=== PATIENT | female | born 1980 | race Caucasian/White ===

== ENCOUNTER → 2019-08-08 08:39 | Outpatient (CLI) | payer OTHER, SELFPAY ==
--- NOTE | 2019-08-08 | DI.US.S_ITS ---
PROCEDURE: US OB >= 14 WEEKS FETUS INDICATIONS: ENCOUNTER IF SUPERVISION OF FIRST OUTSIDE/PRIOR DATING DATA: Last menstrual period (LMP): 03/19/19. LMP-based estimated date of delivery (WISAM): 12/20/19. First dating scan (date and location): 08/08/19. Estimated date of delivery (WISAM) from first dating scan: 12/20/19. TECHNIQUE: Real-time scanning was performed of the fetus, with image documentation and biometric measurements. Endovaginal scanning: No COMPARISON: None. FINDINGS: General: A single living intrauterine gestation is present. Presentation: Vertex. Placenta: Placental position is anterior, without previa. Amniotic fluid index: 13.1 cm, normal range is 5-24 cm. heart rate: 139 beats per minute. Maternal cervical canal: 4.6 cm long. Normal lower limit is 2.5 cm. biometrics: Biparietal diameter: 20 weeks 4 days Head circumference: 21 weeks 1 day Abdominal circumference: 21 weeks 2 days Femur length: 20 weeks 3 days Estimated gestational age from initial scan: not applicable. Composite gestational age from present scan: 20 weeks 6 days Estimated weight and percentile: 3 994 g; 54 percentile Measurement variability for biometric dating: +/- 7 days from 14 weeks to 15 weeks 6 days gestation, +/- 10 days from 16 weeks to 21 weeks 6 days gestation, +/- 2 weeks from 22 weeks to 27 weeks 6 days gestation, +/- 3 weeks for 28 weeks gestation or later. weight reference: 4500 g or EFW >90/95% is considered macrosomia or large for gestational age. EFW <10% is small for gestational age. EFW 5% or less is considered intra-uterine growth restriction. Anatomic survey: Neuro: Ventricles are non-dilated at less than 10 mm. Cisterna magna is normal at 3-11 mm. Cerebellum is normal in size and morphology. Nuchal skin fold: Normal at less than 6 mm between 14-21 weeks gestational age. Face: Nose and lips, facial profile are normal. Spine: No evidence for spina bifida. Heart: 4-chambered heart is present, with normal ventricular outflow tracts. Diaphragm: Diaphragm is intact. Stomach: Left-sided stomach is present. Kidneys: No hydronephrosis. Normal is less than 5 mm in 2nd trimester, less than 7 mm in 3rd trimester. Cord: 3-vessel cord has orthotopic insertion. Bladder: Normal in size. Extremities: All 4 extremities identified. IMPRESSION: 1. Single living IUP with mean composite gestational age of 20 weeks 6 days corresponding to ultrasound WISAM of 12/20/19. 2. Normal anatomic survey. Dictated by: José Miguel Chong [facility] Interpreted: Brian Parrish MD on 08/08/2019 at 12:59 Approved by: Brian Parrish M.D. on 08/08/2019 at 16:48
== END ==
PROVIDERS: PCP Physician Assistant Medical; Visit Provider Nurse Practitioner Obstetrics & Gynecology
DX: Z34.02 Encounter for supervision of normal first pregnancy, second trimester (principal); Z3A.20 20 weeks gestation of pregnancy
CPT/HCPCS: 76811

== ENCOUNTER → 2019-09-18 06:43 | Outpatient (CLI) | payer OTHER, SELFPAY ==
[2019-09-18 08:46] LABS: Hematocrit 34.5 % (36-46); Hemoglobin 11.5 g/dL (12.0-16.0); Mean Corpuscular HGB Conc 33.5 % (30-36); Mean Corpuscular Hemoglobin 30.6 PG (26-34); Mean Corpuscular Volume 91.3 fL (80-100); Platelet Count 172 X10^3/uL (150-400); Red Blood Cell Count 3.77 X10^6/uL (4.0-5.2); Red Cell Distribution Width 12.7 % (11.6-14.8); White Blood Cell Count 9.8 X10^3/uL (4.5-11.0)
[2019-09-18 08:58] LABS: Glucose 1 Hour 177 mg/dL (70-170)
[2019-09-18 09:09] LABS: Glucose Fasting 83 mg/dL (70-100)
[2019-09-18 09:37] LABS: Glucose Tol Interpretation INTERPRETATION
[2019-09-18 10:01] LABS: Glucose 2 Hour 161 mg/dL (70-140)
== END ==
PROVIDERS: PCP Physician Assistant Medical; Visit Provider Nurse Practitioner Obstetrics & Gynecology
DX: Z34.02 Encounter for supervision of normal first pregnancy, second trimester (principal); Z13.1 Encounter for screening for diabetes mellitus
CPT/HCPCS: 36415; 82951; 82952; 85027

== ENCOUNTER → 2019-09-25 09:48 | Outpatient (CLI) | payer OTHER, SELFPAY ==
--- NOTE | 2019-09-25 11:02 | DIET.PN ---
INITIAL GESTATIONAL DIABETES ASSESSMENT ASSESS:? Mrs. Eid is a 39 yof newly diagnosed with Gestational Diabetes. This is her first . She has been monitoring her BG 4 x/day for the last 5 days. She reports a 16 lb weight loss in the first trimester, but is slowly starting to gain some back. She admits she does not typically eat 3 meals per day. She generally does not eat in the evening, but has been trying to be more consistent with meals since . Reports taking her multivitamin every 3 days. She recently started walking in the evening with her . ? WISAM:?December 20, 2019 ? WKS GESTATION:?? 28 weeks ?LABS: Gluc: 83 1 hr: 177 2 hr: 161 FB-93 1 hrPP: 78-122 ? MEDS: n/a ? DIET:? B: eggs, avocado, toast L: salad D: turkey, roasted veg ? HT:? 66 ? PRE-PREG WT:? 181 # ? PRE-PREG BMI:??? 29.2 ? CURRENT WT : 183 # ? TOTAL WT GAIN:? 2 # EXERCISE: walking 15 min after dinner NUTRITION DX 1. Altered nutrition related lab values r/t gestational diabetes as evidenced by recent labs (OGGT). INTERVENTION 1. Discussed pathophysiology of gestational diabetes and impact of hormone and nutrition/diet on blood sugar control.? Discussed fed versus non-fed state.? 2. Recommended checking fasting and 1hr post prandial (3x/day).? Discussed goals for glycemic control (<95 FBG, <140 1-hr PP).? 3. Discussed the effect of carbohydrates/protein/fat on blood sugar control.? Stressed importance of consistent carbohydrate intake at each meal and provided instructions for recommended servings/portions of carbohydrates/protein per meal.? Provided pt with educational material. 4. Introduced carbohydrate counting and measuring carbohydrate content via servings sizes and reading nutrition labels.? Provided handouts.? Pt will need further review 5. Discussed importance of meal timing and not going >3 hours between meals.? Provided sample meal schedule for pt.? Pt agreeable.?? 6. Discussed importance a pre-malissa vitamin and including food sources of calcium, vitamin D, iron and folic acid for baby and mother?s nutrition support. 7. Discussed caffeine intake. Recommend no more than 200 mg/day (1 cup coffee). 8. Discussed rule of 15 for hypoglycemia. 9. Recommend patient purchase Urine Ketone strips and instructed on use and when to contact provider. 10. Recommended patient continue exercise as appropriate per PCP approval. 11. Patient may need medication management, will follow-up with plan of care at next visit after reviewing glucose results.? MONITOR/EVAL: Follow up scheduled X 2 week. Good compliance expected. Review: carb sources, carb counting, portion size, meal timing, BG log, weight.
== END ==
PROVIDERS: PCP Physician Assistant Medical; Visit Provider Nurse Practitioner Obstetrics & Gynecology
DX: O24.419 Gestational diabetes mellitus in pregnancy, unspecified control (principal); Z3A.28 28 weeks gestation of pregnancy; Z71.3 Dietary counseling and surveillance
CPT/HCPCS: 97802

== ENCOUNTER → 2019-10-10 13:54 | Outpatient (CLI) | payer OTHER, SELFPAY ==
--- NOTE | 2019-10-10 15:25 | DIET.PN ---
Gestational Diabetes Follow Up ? ASSESS:? Mrs. Eid was seen for gestational diabetes nutrition F/U. She continues to monitor her fasting blood glucose and 1 hr PP every meal. She has maintained normal glucose values most of the time with FBG between 66-95 (>95 x 2) and 1 hr PP between 65-122. She is continues to maintain a consistent diet eating 3 x/day with snacks in between. She is now taking her multi vitamin every evening with no complications. It is notable that her fasting blood glucose has gone down since returning to work from the holiday break. She feels this is likely due to a more consistent schedule and waking time. She was excited to report she has been cooking with a variety of produce and is learning to replace many starchy side items with mashed veggies. ? LABS: FB-95 (96, 122) 1 hr PP:??65-122 ? Weight: 184 # (1 # weight gain) ? DIET: BF: eggs, avocado, toast L: chicken, salad D: chicken, 1 cup homemade mac n cheese, variety of vegetables Sn: toast or apple w/ PB, milk ? EXERCISE:?? ? NUTRITION Dx? 1. Altered nutrition related labs r/t gestational diabetes aeb recent labs (OGGT). ? INTERVENTION? 1. Reviewed blood sugar log and implications/reasons for elevated/decreased blood sugar.? Pt with good understanding.? 2. Reviewed carbohydrate counting and importance of consistent carbohydrate intake.? 3. Reviewed meal intake and importance of balanced meals. 4.Discussed evening snacks ideas. Recommended avoiding milk and fruit after dinner. ? MONITOR/EVALUATE: Pt receptive to information provided.? Will schedule follow up in 6 weeks. Patient will call sooner if blood glucose is not in range.
== END ==
PROVIDERS: PCP Physician Assistant Medical; Visit Provider Nurse Practitioner Obstetrics & Gynecology
DX: O24.419 Gestational diabetes mellitus in pregnancy, unspecified control (principal); Z71.3 Dietary counseling and surveillance
CPT/HCPCS: 97803

== ENCOUNTER → 2019-11-10 10:57 | Outpatient (CLI) | payer OTHER, SELFPAY ==
--- NOTE | 2019-11-10 12:26 | DIET.PN ---
Gestational Diabetes Follow Up ? ASSESS:? Mrs. Eid was seen for GDM f/u. She called concerned with low blood glucose readings throughout the day reporting feelings of fatigue. She admits she has not been eating as many carbs as she should be as it is sometimes challenging to keep in moderation, so she does not eat them. She also reports changes in her work schedule with a new lunch time of 10:20. She is often not hungry at that time and will not get a chance to eat later in the afternoon so she waits until she is home from work. ? LABS: FB-89 1 hr PP Brk:?76-90 1 hr PP tara: 76-106 1 hr PP din: 88-141? Weight: 189 (up 5 # in 1 mo) ? NUTRITION Dx? 1. Altered nutrition related labs r/t gestational diabetes aeb recent labs (OGGT). ? INTERVENTION? 1. Reviewed blood sugar log and implications/reasons for elevated/decreased blood sugar.? Pt with good understanding.? 2. Reviewed carbohydrate counting and importance of consistent carbohydrate intake.? 3. Discussed lunch and snack ideas to take to school to ensure she is getting enough carb/pro when schedule does not allow for a later meal time. 4. Recommended adding ? banana to morning protein shake and milk with each meal for improved glucose. 5. Discussed adding beans/lentils, cold peas or corn to lunch salads for added CHO w/ fiber. 6. Recommended continuing to monitor FBG several times /day and check 1 hr PP breakfast with updated dietary changes and as these have been her lowest ranges and when she feels the most fatigue. ? MONITOR/EVALUATE: Pt receptive to information provided.? Will schedule follow up if blood glucose is not in range. :
== END ==
PROVIDERS: PCP Physician Assistant Medical; Referring Provider Nurse Practitioner Obstetrics & Gynecology; Visit Provider Nurse Practitioner Obstetrics & Gynecology
DX: E11.649 Type 2 diabetes mellitus with hypoglycemia without coma (principal); Z71.3 Dietary counseling and surveillance
CPT/HCPCS: G0108

== ENCOUNTER 2019-11-18 16:09 | Outpatient (CLI) | payer OTHER, SELFPAY ==
--- NOTE | 2019-11-18 16:44 | P.TNLD_ITS ---
Visit Information Visit Information Date of evaluation: 11/18/19 Primary OB Provider: Samira Phillips On-call OB Provider: Samira Phillips Comments/Additional reasons for admission: 39 @ [id number] by LMP and early US. Presenting for evaluation of BP. Wasn't feeling well over the weekend with an episode Sunday of temporary loss of a patch of her field of vision, then a syncopal episode in the shower on Sunday. Denies impact to head or abdomen. [facility] her [facility] and bought a home BP cuff. Has had 2 elevated readings, one at [facility] and one at home w/ diastolic 92. Denies CAMARGO, recurrence of vision changes, RUQ pain or edema. +FM. No cramping or ctx. No LOF. Increased anxiety d/t close friend w/ similar WISAM who has recently developed preeclampsia w/ severe features and was admitted to [facility] . [facility] Medical History (Updated 11/18/19 @ 16:55 by Samira Phillips CNM) Benign focal childhood epilepsy (Acute) Skin cancer (melanoma) (Acute) Family History (Updated 11/18/19 @ 16:57 by Samira Phillips CNM) Father Thyroid disorder Social History (Updated 11/18/19 @ 16:57 by Samira Phillips CNM) marital status: household members: spouse lives independently: Yes housing: house education level: college occupational status: employed Review of Systems Review of Systems ROS: Yes All systems reviewed with the patient and are negative except as otherwise documented Exam Vital Signs (past 8 hours): BP 116/69, HR76, T97.2F Temporal Presentation: vertex Evaluation Evaluation Baseline heart rate: 130 Variability: Moderate (11-25) monitor accelerations: Present monitor decelerations: Absent Contraction Frequency (minutes): 0 Category of Tracing: I Comments: CE Deferred Diagnosis, Plan/Disposition Plan/Disposition Plan: Recommend increased hydration and consistent nutrition intake as patient has known issues w/ low BGs. Reassurance given on normal BP and reactive NST. Standard precautions igven. RTC as previously scheduled. OB Disposition: home
== END 2019-11-18 16:45 | disposition home or self-care (01) ==
LOC: OB 11-19 10:38
PROVIDERS: PCP Physician Assistant Medical; Referring Provider Nurse Practitioner Obstetrics & Gynecology; Visit Provider Nurse Practitioner Obstetrics & Gynecology
DX: O26.893 Other specified pregnancy related conditions, third trimester (principal); H53.8 Other visual disturbances; R55 Syncope and collapse; R03.0 Elevated blood-pressure reading, without diagnosis of hypertension; Z3A.35 35 weeks gestation of pregnancy
CPT/HCPCS: 59025; G0378; G0379

== ENCOUNTER → 2019-11-22 14:06 | Outpatient (ROUT) | payer OTHER, SELFPAY | PROVIDERS: Visit Provider Nurse Practitioner Obstetrics & Gynecology | DX: Z11.0 Encounter for screening for intestinal infectious diseases (principal); Z11.2 Encounter for screening for other bacterial diseases | CPT/HCPCS: 87081 ==

== ENCOUNTER 2019-12-05 11:38 | Inpatient (IN) | payer OTHER, SELFPAY ==
--- NOTE | 2019-12-05 12:25 | PM.OBHP.1 ---
OB HPI Date/Time Date of admission: 12/05/19 Date Patient Seen: 12/05/19 Time Patient Seen: 12:00 History of Present Condition Chief complaint: Observation of labor : 2 Para: 0 Estimated Date of Delivery: 12/20/19 Estimated Gestational Age (weeks): 37.6 Narrative: Janny Eid is a 39 year old female @ [id number] by LMP and 8wk US presents for evaluation of PROM. Has noticed leaking clear, pink fluid since midnight last night. +FM. Occasional mild ctx, nothing consistent or strong. Declined to come in until 12 hours of ROM, now agreeable to active management of PROM. High anxiety with needles and exams, declines cervical exam. Planning epidural. present and supportive. History of Present care: good care, initiated at week # (8), number of visits (11) and pounds weight gain (21) Dating criteria: LMP confirmed by 1st trimester US Obstetrical complications: gestational diabetes (GDMA1) Medical complications: psychiatric (depression/anxiety) Preadmission Labs Blood type: A (+) positive -: Antibody screen: negative, GBS status: negative, HBsAG: negative, HIV: negative and RPR/VDLR: negative -: Chlamydia screen: not detected and Gonorrhea screen: not detected -: Rubella: immune and Varicella: unknown HCT: 34.5 PAP: Normal Cell-free DNA: negative/male 1 hr GTT: 177 3 hr GTT: 2 hr (161) Fasting blood glucose: 83 Prior (ies) History: 2016-TAB @ 5wks Evaluation Evaluation Baseline heart rate: 130 Variability: Moderate (11-25) monitor accelerations: Present monitor decelerations: Absent Contraction Frequency (minutes): 0 Uterine Contraction Intensity: Mild Category of Tracing: I PFSH Medical History Benign focal childhood epilepsy (Acute) Gestational diabetes (Inactive) Skin cancer (melanoma) (Acute) Family History Father Thyroid disorder Social History marital status: household members: spouse lives independently: Yes housing: house education level: college occupational status: employed Meds Home Medications and Allergies Home Medications Medication Instructions Recorded Confirmed Type sertraline mg 12/05/19 History Allergies Allergy/AdvReac Type Severity Reaction Status Date / Time tegratol Allergy Unknown Uncoded 12/05/19 12:44 Review of Systems Review of Systems ROS: Yes All systems reviewed with the patient and are negative except as otherwise documented Exam Vital Signs (past 8 hours): HR 109/72, HR76, T36.2F Temporal Chest Chest: normal inspection of the chest Resp Effort & Inspection: normal respiratory effort Auscultation: clear to auscultation bilaterally Cardio Rate: regular rate Rhythm: regular rhythm Heart Sounds: S1 normal and S2 normal Uterus Location (Fundal Height): 37 Presentation: vertex Estimated Weight (lbs): 6 Amniotic Fluid: clear Assessment and Plan Assessment and Plan Assessment and Plan narrative: A: AMA Primip Term PROM @ 37.6wks ROM x12 hours without sx of infectionNot in labor No indication for GBS prophylaxis Depression-stable on sertraline Cat I FHR P: Admit routine orders w/ random glucose added. Pitocin augmentation, start @ 1-2mu/min and may in crease 1-2mu/min Q30min, RN notified. Labor support PRN. Epidural when requested. Will check CE after 2 hours of strong ctx or sooner, PRN. reassess in 4-6 hours. OB Back-up/ notified of pt admit status and POC. Time Spent with Patient Total time spent with greater than 50% in coordination of care (as documented) at patient's floor/unit and/or counseling patient:: 25 - 35 minutes
[2019-12-05] MEDS: LACTATED RINGERS 1,000 ML 125 ML IV ×2 (13:45→20:20)
[2019-12-05 14:06] LABS: Add Manual Diff / Slide Review NO; Basophils Absolute Auto 0 /uL (0-100); Basophils Percent Auto 0.3 % (0-2); Eosinophils Absolute Auto 100 /uL (0-450); Eosinophils Percent Auto 0.5 % (2-4); Hematocrit 37.9 % (36-46); Hemoglobin 12.4 g/dL (12.0-16.0); Lymphocytes Absolute Auto 2700 /uL (1100-4500); Lymphocytes Percent Auto 20.6 % (25-40); Mean Corpuscular HGB Conc 32.8 % (30-36); Mean Corpuscular Hemoglobin 29.2 PG (26-34); Mean Corpuscular Volume 89.1 fL (80-100); Monocytes Absolute Auto 500 /uL (0-900); Monocytes Percent Auto 3.9 % (3-14); Neutrophils Absolute Auto 9900 /uL (1500-7000); Neutrophils Percent Auto 74.7 % (50-75); Platelet Count 154 X10^3/uL (150-400); Red Blood Cell Count 4.26 X10^6/uL (4.0-5.2); Red Cell Distribution Width 13.5 % (11.6-14.8); White Blood Cell Count 13.2 X10^3/uL (4.5-11.0)
[2019-12-05] MEDS: OXYTOCIN PREMIX 30 UNIT/500 ML PLAST..BAG IV (14:15)
[2019-12-05 14:20] LABS: Glucose 72 mg/dL (70-100)
[2019-12-05 14:31] VITALS: BP 109/70
--- NOTE | 2019-12-05 16:23 | PM.OBPNLAB ---
Date/Time Date Patient Seen: 12/05/19 Time Patient Seen: 16:20 Pain Control Pain control: tolerating well Comments: Augmentation delayed d/t difficult IV placement. PIV in left upper arm by AMBERLY RN under US guidance after 1 failed attempt. Pitocin was started shortly after 2pm. Pt has been walking and is now trying to sleep, remains completely comfortable. Pelvic Exam Comments: deferred Contractions Contractions on admission: irregular Monitor mode: External Pitocin rate (mU/min): 3 Contraction frequency (min): 5 Contraction duration (min): 50 Contraction pattern: Irregular Contraction intensity: Mild Status status: Category l Heart Rate Baseline: 125 Monitor Accelerations: Present Monitor Decelerations: Absent Monitor Variability: Moderate Assessment and Plan Assessment: other Plan: continuous present management Comments: Encouraged RN to increase pitocin by 1-2 mu/min Q3o minutes. Reassess in 4-6 hours or sooner, PRN.
--- NOTE | 2019-12-05 21:33 | PM.OBPNLAB ---
Date/Time Date Patient Seen: 12/05/19 Time Patient Seen: 21:20 Pain Control Pain control: epidural Comments: Pt began to feel strong contractions around 6pm and requested epidural around 8pm. Patient received moderate pain relief w/ epidural, but continues to c/o RLQ contraction pain and is working with anesthesia to improve this. VS: BP 123/71, HR 74bpm, T 35.6C Temporal Pelvic Exam Dilation (cm): 3 Effacement (%): 90 station: -3 Amniotic membrane status: Leaking Contractions Date/Time contractions began: 1800 Contractions on admission: regular Monitor mode: External Pitocin rate (mU/min): 9 Contraction frequency (min): 3 Contraction duration (min): 1 Contraction pattern: Irregular Contraction intensity: Mild Status status: Category ll Heart Rate Baseline: 125 Monitor Accelerations: Present Monitor Decelerations: Variable Monitor Variability: Moderate Assessment and Plan Assessment: active labor Plan: continuous present management Comments: Continue to work w/ anesthesia for adequate pain relief. Encourage rest and position changes. Reassess in 4 hours or sooner, PRN.
[2019-12-05] MEDS: SERTRALINE 50 MG TABLET 100 MG PO (21:34)
[2019-12-05] MEDS: ONDANSETRON 4 MG/2 ML INJ IV (21:51)
--- NOTE | 2019-12-06 01:53 | PM.OBPRVD ---
 Events: Gestational Diabetes (GDMA1), Labor Augmentation and Premature Rupture of Membrane Labor & Delivery Delivery date: 12/06/19 Intrapartal events: None Delivery augmentation: pitocin Delivery monitor: external FHT and external uterine Route of delivery: L&D Laceration Description: Perineal - 1st Degree, Labial (Right periclitoral/labia minora) and Superficial Delivery repair: vicryl (4.0) Estimated blood loss (mL): 50 Anesthesia type: Epidural Narrative: Patient was examined at 0100 for recurrent variables in FHR w/ gonzalo to 80's and good return to baselline between contractions. CE C/C/+1. Effective pushing w/ coaching and encouragement led to rapid descent of vertex and NSVB of a viable baby boy in MARTA position. There was no nuchal cord and the shoulders delivered easily. was placed on maternal abdomen for drying and stimulation. Apgars 8/9. remaining 30 units of pitocin in 500mL LR was increased to 350mL/hr for AMTSL. After cessation of pulsation, the cord was double clamped by CNM and cut by FOB. Gentle cord traction led to spontaneous, Schultze deliveyr of an apparently intact placenta, membranes and 3VC. Fundus immediately firm and bleeding minimal. A right periclitoral/labia minora split was repaired w/ 4.0 vicryl for good approximation and a single figure of eight w/ 4.0 vicryl was used to repair a 1st degree perineal laceration. All under adequate epidural anesthesia. QBL 50mL. Baby 1: Infant gender: Male Presentation: vertex position: Right Occiput Anterior (MARTA) Placenta delivery description: Spontaneous cord vessel description: 3 Vessels score (1 min): 8 score (5 min): 9 Plan for aftercare: P: Routine PP orders w/ anticipated discharge in 36 hours.
[2019-12-06] MEDS: KETOROLAC 30 MG/ML VIAL IV (03:45)
[2019-12-06] MEDS: DOCUSATE 100 MG CAPSULE PO ×2 (09:48→21:15)
[2019-12-06] MEDS: PRENATAL VIT,CALC/IRON/FOLIC 1 TABLET 1 TAB PO (09:48)
[2019-12-06] MEDS: DERMOPLAST SPRAY 20% 60 ML 1 SPRAY TOP (13:28)
--- NOTE | 2019-12-06 15:16 | PM.OBPN.1 ---
Subjective - OB Subjective Patient comments: no complaints, pain well controlled and tolerating diet baby status: doing well and nursing well feeding status: exclusively breast feeding Narrative: Patient feeling well since giving . Voiding and ambulating independently. well w/ RN asistance. Minimal lochia, no clots. Date Patient Seen: 12/06/19 Time Patient Seen: 15:00 Exam Vital Signs (past 8 hours): BP 108/72, LA12hsi, RR17, T97.8F Temporal, SpO2 97% Const General: cooperative, healthy appearing and comfortable Nutritional Appearance: overweight Orientation: alert, awake and oriented x3 Chest Breast inspection: normal inspection of the breasts Other: Fundus firm @U, lochia scant Psych Affect: normal affect Objective Labs Result Diagrams: 12/05/19 13:45 12/05/19 13:45 Assessment & Plan Plan day: 1 plan OB: routine care Comments: Maintain routine PP orders w/ focus on support overnight. Anticipate d/c to home tomorrow. Time Spent With Patient Time: Total time spent is greater than 50% in coordination of care (as documented) at patient's floor/unit and/or counseling patient: Time with patient: less than 15 minutes
[2019-12-06] MEDS: LANOLIN OINT 7 GM 1 APPLIC TOP (16:58)
[2019-12-06] MEDS: SERTRALINE 50 MG TABLET 100 MG PO (21:15)
[2019-12-07] MEDS: PRENATAL VIT,CALC/IRON/FOLIC 1 TABLET 1 TAB PO (08:50)
[2019-12-07] MEDS: DOCUSATE 100 MG CAPSULE PO (08:50)
--- NOTE | 2019-12-07 11:35 | P.DS_ITS ---
Discharge Providers Provider Date of admission: 12/05/19 11:38 Discharge Date: 12/07/19 Primary care physician: Balwinder Plummer Consults: 12/07/19 01:51 Consult to Shipper/Receiver Routine Comment: Discharge provider: Samira Phillips CNM Summary Hospital Course Date Patient Seen: 12/07/19 Time Patient Seen: 11:15 Procedures: 39YO @ 1 day PP. Viding and ambulating independently. confidently with occasional use of a nipple shield. Tolerating ge neral diet. Pain well controlled w/ PO medication. Minimal vaginal bleeding. Spouse remains present and supportive, both eager for discharge to home today. Peripartum Data Infant Delivery Method: Natural Vaginal Laceration description: Perineal - 1st Degree complications: none 1: Gender: Male Disposition of : home Status at Discharge Cognitive/behavioral status at discharge: oriented and at baseline, oriented Functional status at discharge: independent ambulation Overall status at discharge: patient is progressing back to baseline Time Spent with Patient Time attestation: Total time spent providing and/or coordinating discharge services: Time spent: Less than 30 minutes Objective Labs Result Diagrams: 12/05/19 13:45 12/05/19 13:45 Exam Vital Signs (past 8 hours): BP 123/73, HR83, RR16, T97.5F Temporal, SpO2 98% Chest Chest: normal inspection of the chest Breast inspection: normal inspection of the breasts Other: nipples red and tender, intact Cardio Rate: regular rate Rhythm: regular rhythm Heart Sounds: S1 normal and S2 normal Other: Fundus firm @ u-1, lochia scant Psych Appearance: grossly normal and well kempt Speech and Movement: speech and movement normal Mood: congruent mood Discharge Plan Discharge Plan Patient Disposition: Home Discharge orders & Medications Prescriptions: New acetaminophen 325 mg Tablet 650 mg PO Q6HR PRN (Reason: Pain, Mild (1-3)) 14 Days Qty: 60 RF: 2 docusate sodium [DOK] 100 mg Capsule 100 mg PO BID 14 Days Qty: 28 RF: 0 ibuprofen 600 mg Tablet 600 mg PO Q6HR PRN (Reason: Pain, Mild (1-3)) 14 Days Qty: 60 RF: 2 Nsi-G-Yzownh Cream 1 applic topical PRN PRN (Reason: Tenderness) 365 Days Qty: 60 RF: 1 Continued sertraline 100 mg tablet 100 mg PO DAILY RF: 0 Follow up/Referrals: Balwinder Plummer [Primary Care Provider] - Samira Phillips CNM [Advanced Database Security Expert] - (Follow up in 2 weeks (12/19/19 @ 1pm) and in 6 weeks ( patient to schedule)) Diet/Activity/Treatments Diet: Diet as Tolerated and Regular Activity: 6 weeks of pelvic rest. Slowly increase activity as tolerated. Skin/Wound/Dressing Care Report to your healthcare provider any signs of infection, such as:: chills, fever, increased pain and unusual redness Visit Report/Discharge Packet Instructions: DI for Depression Discharge Data Primary Care Provider: Balwinder Plummer
[2019-12-07 12:05] VITALS: BP 123/47; PULSE 82; RESP 16; TEMP 36.4
== END 2019-12-07 13:08 | disposition home or self-care (01) | DRG 807 ==
PROVIDERS: Admitting Provider Nurse Practitioner Obstetrics & Gynecology; PCP Physician Assistant Medical; Referring Provider Nurse Practitioner Obstetrics & Gynecology; Visit Provider Nurse Practitioner Obstetrics & Gynecology
DX: O42.02 Full-term premature rupture of membranes, onset of labor within 24 hours of rupture (principal); O24.429 Gestational diabetes mellitus in childbirth, unspecified control; Z3A.37 37 weeks gestation of pregnancy; Z37.0 Single live birth; O70.0 First degree perineal laceration during delivery
CPT/HCPCS: 01967; 59050; 82947; 85025; 86850; 86900; 86901; G0379; J1885; J2405; J2590

== ENCOUNTER 2020-01-02 12:29 | Inpatient (IN) | payer OTHER, SELFPAY ==
[2020-01-02] VITALS (13 sets, daily range): BP systolic 98–114; BP diastolic 54–75; PULSE 100–120; RESP 11–20; TEMP 36.9–38.4; O2SAT 95–99; BMI 28.2
--- NOTE | 2020-01-02 | PATH_ITS ---
[facility] Accession Number: [id number] . 01 Material submitted: . breast - RIGHT BREAST SKIN BIOPSY . 01 Clinical history: . MASTITIS/ENGORGED BREASTS CLOGGED UP THROWING UP . 01 Diagnosis: Right Breast Skin, Biopsy: Dermal edema and mild interstitial inflammation with neutrophils. . Note: While non specific, the findings could represent, in the proper clinical setting, an evolutionary stage of cellulitis. PAS stain is negative for fungal organisms. Gram stain shows only focal scanty Gram positive cocci in the stratum corneum. No malignancy is identified in the sections examined, nor with panCK immunostain performed. No mammary glandular tissue is visualized histologically. Clinicopathologic correlation is advised for definitive diagnosis. OIT 01/06/2020 1208 Local . 01 Electronically signed: . Carly Rollins MD, Dermatopathologist NPI- [id number] . 01 Gross description: . Received in formalin, labeled right breast skin biopsy, is an unoriented 0.5 x 0.3 x 0.2 cm piece of cowan-white smooth shiny skin. The resection margin is inked blue. Bisected and entirely submitted in cassette A1. ([id number]) /MRV 01/05/2020 0026 Local . 01 Pathologist provided ICD-10: L98.9 . 01 CPT . 521763, 122870, 552578, [id number] Performed at: [address] [facility] [address], [place], [place] [id number] MD Bob Sosa MD Phone: [phone]
--- NOTE | 2020-01-02 12:54 | ED_ITS ---
HPI - Skin/Abscess/Foreign Bdy General Chief complaint: Skin/Abscess/Foreign Body Stated complaint: mastitis/engorged breasts clogged up, throwing up Time Seen by Provider: 01/02/20 12:36 Source: patient Mode of arrival: Ambulatory Limitations: no limitations History of Present Illness HPI narrative: 39-year-old 4 weeks from spontaneous vaginal delivery at 37 weeks was breast-feeding here for evaluation of right-sided mastitis, breast engorgement, breast pain, fevers. Has been on a course of which she describes as doxycycline. She completed the course of this. She is now approximately 1 week into a course of Augmentin. She reports she continues to have pain and redness and engorgement of her right breast. She is only able to express a few drops of milk. Also describes fevers. Came into the emergency department because the pain. Related Data Home Medications Medication Instructions Recorded Confirmed sertraline 100 mg PO DAILY 12/05/19 12/05/19 Previous Rx's Medication Instructions Recorded acetaminophen 650 mg PO Q6HR PRN 14 Days #60 tab 12/07/19 docusate sodium [DOK] 100 mg PO BID 14 Days #28 cap 12/07/19 ibuprofen 600 mg PO Q6HR PRN 14 Days #60 tab 12/07/19 lanolin [[id number]] 1 applic TOPICAL PRN PRN 365 Days 12/07/19 #60 gram Allergies Allergy/AdvReac Type Severity Reaction Status Date / Time carbamazepine [From Tegretol] Allergy Verified 01/02/20 15:05 Review of Systems Constitutional Constitutional: Reports fever(s) Cardiovascular Cardiovascular: Denies chest pain and Denies dyspnea Respiratory Respiratory: Denies dyspnea Gastrointestinal Gastrointestinal: Denies abdominal pain Genitourinary Genitourinary: Denies dysuria Integumentary/Breasts Comments: Redness engorgement of right breast Hematologic/Lymphatic Hematologic/Lymphatic: Denies easy bleeding and Denies easy bruising Patient History Medical History Benign focal childhood epilepsy (Acute) Gestational diabetes (Inactive) Skin cancer (melanoma) (Acute) Social History marital status: household members: spouse lives independently: Yes housing: house education level: college occupational status: employed Smoking Status: Never smoker Smoking Status: Never smoker Exam Initial Vital Signs Initial Vital Signs: Vital Signs Temperature 98.4 F 01/02/20 12:39 Pulse Rate 117 H 01/02/20 12:39 Respiratory Rate 18 01/02/20 12:39 Blood Pressure 114/54 L 01/02/20 12:39 Pulse Oximetry 98 01/02/20 12:39 Const General: cooperative, No comfortable (Uncomfortable), well developed and well groomed Limitations: mental status not altered HENMN Head: normal to inspection and normocephalic Chest Other: Left breast unremarkable, right breast approximately 3 times the size of the left. Red, engorged, warm to touch, no drainage. Cardio Rate: tachycardic Skin Other: Redness around the right breast Neuro General: alert and awake Cognition: normal cognition Speech: speech normal Extrem General: normal to inspection and capillary refill normal Course Orders Ordered: ED Orders 01/02/20 12:54 breast RT limited Stat 01/02/20 13:00 Basic Metabolic Panel Stat Complete Blood Count AUTO DIFF Stat Lactate (Lactic Acid) Stat Procalcitonin Stat Vancomycin HCl (Vancomycin) 1,000 mg in 200 mls @ 200 mls/hr IV NOW ONE Stop: 01/02/20 15:57 Last Admin: 01/02/20 15:10 Dose: 200 mls/hr Documented by: BOLIVAR Sodium Chloride (Normal Saline 0.9%) 1,000 mls @ 125 mls/hr IV CONT OSCAR Last Admin: 01/02/20 15:10 Dose: 125 mls/hr Documented by: BOLIVAR Discontinued Medications Sodium Chloride (Normal Saline 0.9%) 1,000 mls @ 500 mls/hr IV BOLUS ONE Stop: 01/02/20 14:53 Last Infusion: 01/02/20 15:21 Dose: 0 mls/hr Documented by: Admin: 01/02/20 13:22 Dose: 500 mls/hr Documented by: BOLIVAR Morphine Sulfate (Morphine) 4 mg IV NOW ONE Stop: 01/02/20 13:09 Last Admin: 01/02/20 13:21 Dose: 4 mg Documented by: BOLIVAR Vital Signs Vital signs: Vital Signs - 8 hr 01/02/20 12:39 01/02/20 13:46 01/02/20 15:03 Temperature 98.4 F Pulse Rate 117 H 108 H 113 H Respiratory Rate 18 17 20 Blood Pressure 114/54 L Blood Pressure [Right Arm] 114/54 L 112/58 L Pulse Oximetry 98 98 99 MDM - Skin/Abscess/Foreign Bdy Lab Data Attestation: I reviewed the patient's lab results. Result diagrams: 01/02/20 13:00 01/02/20 13:00 Labs: Lab Results 01/02/20 01/02/20 01/02/20 Range/Units 13:00 13:00 13:00 WBC 22.6 H (4.5-11.0) X10^3/uL RBC 4.01 (4.0-5.2) X10^6/uL Hgb 11.2 L (12.0-16.0) g/dL Hct 35.0 L (36-46) % MCV 87.4 (80-100) fL MCH 27.9 (26-34) PG MCHC 31.9 (30-36) % RDW 14.6 (11.6-14.8) % Plt Count 149 L (150-400) X10^3/uL Neut % (Auto) 92.2 H (50-75) % Lymph % (Auto) 2.0 L (25-40) % Harris % (Auto) 4.8 (3-14) % Eos % (Auto) 0.6 L (2-4) % Baso % (Auto) 0.4 (0-2) % Neut # (Auto) 48363 H (8228-2354) /uL Lymph # (Auto) 500 L (2774-9656) /uL Harris # (Auto) 1100 H (0-900) /uL Eos # (Auto) 100 (0-450) /uL Baso # (Auto) 100 (0-100) /uL Sodium 140 (137-145) mmol/L Potassium 3.8 (3.4-5.1) mmol/L Chloride 105 (98-107) mmol/L Carbon Dioxide 25 (22-32) mmol/L BUN 11 (7-17) mg/dL Creatinine 0.62 (0.52-1.04) mg/dL Estimated GFR > 60.0 (>60) mL/min BUN/Creatinine Ratio 17.7 (6-22) Glucose 123 H (70-100) mg/dL Lactate (0.7-2.1) mmol/L Calcium 9.3 (8.4-10.2) mg/dL Procalcitonin 4.55 H (<0.5) ng/mL 01/02/20 Range/Units 13:00 WBC (4.5-11.0) X10^3/uL RBC (4.0-5.2) X10^6/uL Hgb (12.0-16.0) g/dL Hct (36-46) % MCV (80-100) fL MCH (26-34) PG MCHC (30-36) % RDW (11.6-14.8) % Plt Count (150-400) X10^3/uL Neut % (Auto) (50-75) % Lymph % (Auto) (25-40) % Harris % (Auto) (3-14) % Eos % (Auto) (2-4) % Baso % (Auto) (0-2) % Neut # (Auto) (4812-7095) /uL Lymph # (Auto) (5680-3898) /uL Harris # (Auto) (0-900) /uL Eos # (Auto) (0-450) /uL Baso # (Auto) (0-100) /uL Sodium (137-145) mmol/L Potassium (3.4-5.1) mmol/L Chloride (98-107) mmol/L Carbon Dioxide (22-32) mmol/L BUN (7-17) mg/dL Creatinine (0.52-1.04) mg/dL Estimated GFR (>60) mL/min BUN/Creatinine Ratio (6-22) Glucose (70-100) mg/dL Lactate 1.1 (0.7-2.1) mmol/L Calcium (8.4-10.2) mg/dL Procalcitonin (<0.5) ng/mL Imaging Data Breast ultrasound: Radiologist's Impression: Final report will not be available for a couple days per Radiology They called and stated patient has 6.5 x 4.3 x 5.3 complex fluid collection right breast. [facility] Narrative Medical decision making narrative: Patient is afebrile however tachycardic. Also has leukocytosis. Physical exam certainly shows an engorged red warm right-sided breast concerning for mastitis. Bedside ultrasound showed what appeared to be an abscess on the medial aspect. Formal ultrasound was performed which confirmed this. Patient was given dose of vancomycin which is compatible with . Not hypotensive. Symptoms did improve with pain medication. Discussed the case with Dr. Ribera with general surgery who evaluated the patient in the emergency department and will take to the operating room for incision and drainage. I did discuss this with the patient as well. She expressed understanding and agreement. Discharge Plan Departure Patient Disposition: Admitted as Observation Clinical Impression: Abscess of breast Admit Date/Time: 01/02/20 15:03 Admit Provider: Leah Ribera
--- NOTE | 2020-01-02 12:54 | DI.US.S_ITS ---
ULTRASOUND OF RIGHT BREAST: 01/02/2020 CLINICAL: Painful right breast in nursing mother. No prior exams were available for comparison. Color flow and real-time ultrasound of the right breast were performed. Hwang scale images of the real-time examination were reviewed. There is a 6.5 x 4.3 x 5.3 cm irregular fluid collection with a thickened wall in the right breast central to the nipple in the retroareolar region. This begins about 1.2 cm deep to the skin surface. This irregular fluid collection is of mixed echogenicity with internal echoes. This correlates as palpated, to the reported pain, with area of redness, and area of clinical concern. Color flow imaging demonstrates that there is increased vascularity in surrounding tissue. IMPRESSION: BENIGN There is no sonographic evidence of malignancy. The 6.5 cm irregular fluid collection in the right breast is consistent with an abscess. Surgical incision and drainage is planned. Findings discussed with Dr. Lee in the emergency room at 15:10 hours. Clinical follow up recommended. Screening mammography to commence at age 40. This exam was interpreted at Station ID: [id number]. Electronically Signed By: Lizbet leiva/:01/02/2020 16:34:03 letter sent: Clinical Evaluation Ultrasound BI-RADS: 2 Benign
[2020-01-02 13:12] LABS: Add Manual Diff / Slide Review NO; Basophils Absolute Auto 100 /uL (0-100); Basophils Percent Auto 0.4 % (0-2); Eosinophils Absolute Auto 100 /uL (0-450); Eosinophils Percent Auto 0.6 % (2-4); Hemoglobin 11.2 g/dL (12.0-16.0); Lymphocytes Absolute Auto 500 /uL (1100-4500); Mean Corpuscular HGB Conc 31.9 % (30-36); Mean Corpuscular Hemoglobin 27.9 PG (26-34); Mean Corpuscular Volume 87.4 fL (80-100); Monocytes Absolute Auto 1100 /uL (0-900); Monocytes Percent Auto 4.8 % (3-14); Neutrophils Absolute Auto 20800 /uL (1500-7000); Neutrophils Percent Auto 92.2 % (50-75); Platelet Count 149 X10^3/uL (150-400); Red Blood Cell Count 4.01 X10^6/uL (4.0-5.2); Red Cell Distribution Width 14.6 % (11.6-14.8); White Blood Cell Count 22.6 X10^3/uL (4.5-11.0)
[2020-01-02] MEDS: MORPHINE 4 MG/ML INJ IV (13:21)
[2020-01-02] MEDS: SODIUM CHLORIDE 0.9% 1,000 ML 500 ML IV (13:22)
[2020-01-02 13:26] LABS: Lactate (Lactic Acid) 1.1 mmol/L (0.7-2.1)
[2020-01-02 13:27] LABS: BUN Creatinine Ratio 17.7 (6-22); Blood Urea Nitrogen 11 mg/dL (7-17); Calcium 9.3 mg/dL (8.4-10.2); Carbon Dioxide 25 mmol/L (22-32); Chloride 105 mmol/L (98-107); Estimated Glomerular Filt Rate > 60.0 mL/min (>60); Glucose 123 mg/dL (70-100); HEMOLYSIS < 15 (0-50); Potassium 3.8 mmol/L (3.4-5.1); Sodium 140 mmol/L (137-145)
[2020-01-02 13:39] LABS: Procalcitonin 4.55 ng/mL (<0.5)
[2020-01-02] MEDS: VANCOMYCIN 1,000 MG/200 ML PIGGYBACK 200 MG IV (15:10)
[2020-01-02] MEDS: SODIUM CHLORIDE 0.9% 1,000 ML 125 ML IV (15:10)
--- NOTE | 2020-01-02 15:28 | P.HP_ITS ---
History of Present Illness History of Present Illness Date Patient Seen: 01/02/20 Time Patient Seen: 15:29 Chief complaint: mastitis/engorged breasts clogged up, throwing up Narrative: This is a 39 yo woman who is 4 weeks out from delivery of her child. She has had intermittent low-grade mastitis in her left breast, and more recently in her right breast. She has been able to resolve her symptoms with antibiotics, pumping, and self expression of milk until today. Her right breast is no longer responding to self expression or pumping. She was put on dox ycycline by her warehouse assistant, and then switched to Augmentin. She has had a mammogram in the last few years for lumps in her breast, but was reported as benign. She has no primary relatives with breast lumps or cancers, but her grandmother had breast cancer. Her white count in the ER is 22, she is tac hycardic, and she has an ultrasound which shows a 6.5 x 4.5 cm retroareolar abscess. ROS: Denies fever, denies sinus drainage, denies cold symptoms, denies rhinorrhea, denies cough, denies shortness of breath. Reports malaise, fatigue, extreme breast pain, and intermittent milky nipple discharge. Thirteen system review is otherwise negative other than as mentioned below and in HPI. PE: GENERAL: Alert, moderately uncomfortable, in mild distress due to breast pain. Appears stated age. Answers questions promptly and appropriately. Vital signs noted. HENT: Normocephalic, atraumatic. Hearing intact. Oral mucosa is pink and moist. EYES: Conjunctiva pink, sclera white, no periorbital swelling. CARDIOVASCULAR: Regular rate. No pedal edema. RESPIRATORY: Non-tachypneic, breathing comfortably on room air. GASTROINTESTINAL: Abdomen soft and non-distended Breast exam: Left breast is slightly engorged, without erythema, without significant tenderness, with milky nipple discharge easily expressed. Right breast is erythematous, with moderate engorgement, significant tenderness, and milky discharge from the nipple GENITALURINARY: No flank tenderness. MUSCULOSKELETAL: Equal tone and mass bilaterally. SKIN: Warm, dry, soft, appropriate color for ethnicity. No other lesions, rashe s, or wounds. NEURO: Alert and Oriented X 3. No gross sensory deficits, or cognitive issues. PSYCH: Appropriate affect and mood. Patient History Medical History Benign focal childhood epilepsy (Acute) Gestational diabetes (Inactive) Skin cancer (melanoma) (Acute) Family & Social History Family History Father Thyroid disorder Social History: household members spouse lives independently Yes Safety & Behavioral: Feels Safe in Current Yes Environment Been Physically Hurt or No Threatened By a Person Tobacco & Substance use: Smoking Status Never smoker Meds Home Medications and Allergies Home Medications Medication Instructions Recorded Confirmed Type sertraline 100 mg PO DAILY 12/05/19 12/05/19 History acetaminophen 650 mg PO Q6HR PRN 14 Days #60 tab 12/07/19 Rx docusate sodium [DOK] 100 mg PO BID 14 Days #28 cap 12/07/19 Rx ibuprofen 600 mg PO Q6HR PRN 14 Days #60 tab 12/07/19 Rx lanolin [Var-Q-Reumce] 1 applic TOPICAL PRN PRN 365 Days 12/07/19 Rx #60 gram Allergies Allergy/AdvReac Type Severity Reaction Status Date / Time carbamazepine [From Tegretol] Allergy Verified 01/02/20 15:05 Exam Vital Signs (past 8 hours): - 01/02/20 12:39 01/02/20 13:46 01/02/20 15:03 Temperature 98.4 F Pulse Rate 117 H 108 H 113 H Respiratory Rate 18 17 20 Blood Pressure 114/54 L Blood Pressure [Right Arm] 114/54 L 112/58 L Pulse Oximetry 98 98 99 Oxygen Delivery Method Room Air Objective Imaging Breast ultrasound: Radiologist's impression: Breast ultrasound: Radiologist's Impression: Final report will not be available for a couple days per Radiology They called and stated patient has 6.5 x 4.3 x 5.3 retroareolar complex fluid collection right breast. Labs Result Diagrams: 01/02/20 13:00 01/02/20 13:00 Labs: Laboratory Results - last 24 hr 01/02/20 01/02/20 01/02/20 13:00 13:00 13:00 WBC 22.6 H RBC 4.01 Hgb 11.2 L Hct 35.0 L MCV 87.4 MCH 27.9 MCHC 31.9 RDW 14.6 Plt Count 149 L Neut % (Auto) 92.2 H Lymph % (Auto) 2.0 L [place] % (Auto) 4.8 Eos % (Auto) 0.6 L Baso % (Auto) 0.4 Neut # (Auto) 97192 H Lymph # (Auto) 500 L [place] # (Auto) 1100 H Eos # (Auto) 100 Baso # (Auto) 100 Sodium 140 Potassium 3.8 Chloride 105 Carbon Dioxide 25 BUN 11 Creatinine 0.62 Estimated GFR > 60.0 BUN/Creatinine Ratio 17.7 Glucose 123 H Lactate Calcium 9.3 Procalcitonin 4.55 H 01/02/20 13:00 WBC RBC Hgb Hct MCV MCH MCHC RDW Plt Count Neut % (Auto) Lymph % (Auto) [place] % (Auto) Eos % (Auto) Baso % (Auto) Neut # (Auto) Lymph # (Auto) [place] # (Auto) Eos # (Auto) Baso # (Auto) Sodium Potassium Chloride Carbon Dioxide BUN Creatinine Estimated GFR BUN/Creatinine Ratio Glucose Lactate 1.1 Calcium Procalcitonin Assessment & Plan Assessment and plan (1) Abscess of breast: Current visit: Yes Status: Acute (2) Gestational diabetes, diet controlled: Current visit: No Status: Acute (3) Anxiety and depression: Current visit: No Status: Acute (4) Leukocytosis: Current visit: Yes Status: Acute (5) Tachycardia: Current visit: Yes Status: Acute Assessment & Plan narrative: This is a 39-year-old woman with a right breast abscess, white count of 22, and tachycardia. Risk and benefit of incision and drainage of her breast abscess were discussed including risk of bleeding, infection, damage to nearby structures, risk of scarring, recurrence, milk fistula, milk duct damage, duct obstruction, prolonged recovery, need for additional procedures. 15 minutes were spent face to face with the patient. More than 50% of the time was spent in counseling and co-ordination of care regarding her current disease process, risks of surgery, expected outcomes, potential need for additional procedures. Plan: NPO IV fluid IV antibiotics To OR urgently for incision and drainage of abscess Admit for observation overnight Dispo pending improvement of symptoms, white count, tachycardia, and pain controlled on p.o. pain med Time Spent With Patient Time with patient: 15-24 minutes Quality VTE Deep Vein Thrombosis/Pulmonary Embolism Present on Admission: No
--- NOTE | 2020-01-02 17:15 | P.OP_ITS ---
Operative Date/Time/Diagnoses Date of procedure: 01/02/20 Time of procedure: 17:15 Pre-op diagnosis: Right breast abscess in the lactating female Post-op diagnosis: same Procedure & Clinicians Procedure: 1. Emergency incision and drainage of large right breast abscess, with Proctor drain placement 2. Skin biopsy, excisional, 1 mm x 1 mm x 1 mm Same procedure as scheduled: Yes Indications: This is a 39-year-old woman who gave 4 weeks ago and developed severe mastitis, who came into the ER with an associated abscess in the right breast, white blood cell count of 22, and tachycardia. Surgeon: Leah Ribera Click Yes if Unassisted: Yes Anesthesia Type: General (with LMA) Operative Notes Findings: Large tense retroareaolar collection of thick milky fluid Specimen(s): other (fluid for culture, skin biopsy for rule out inflammatory breast cancer) Prosthetic devices, grafts, tissues, transplants, or devices: Renzo drain Estimated Blood Loss (mL): 1 Procedure in detail: The patient was brought into the operating room and placed supine on the OR table. Sequential compression devices were placed on both legs and turned on. Appropriate perioperative antibiotics were given prior to the start of surgery. General anesthesia was induced the patient was intubated by Dr. Louis with an LMA while I was out of the room due to viral pandemic related anesthesia restrictions. The right chest was then prepped and draped in sterile fashion. Surgical time-out was conducted. An ultrasound was sterilely prepped and brought into the field. It was placed on the right breast superior to the right areola, and the large retroareolar fluid collection was identified. Was approximately 6 x 8 x 4 cm in size. Local anesthetic was injected under the skin just superior to the right areolar, at the border of the nipple-areolar complex. I then used a large 18 gauge needle on a syringe to locate the fluid collection using ultrasound. I pushed the needle through the skin into the fluid collection and gonzalo back thick murky milk like fluid. I then gave additional local anesthetic to the surrounding skin and subcutaneous tissue. I then used an 11 blade to enlarge the puncture hole to make an 8 mm transverse incision at the border of the nipple-areolar complex. I then widened this space using a tonsil clamp. Copious bloody thick fluid was expressed. I continued to compress the breast and expressed more purulent fluid out, and noted that inferior to the nipple-areolar complex there was a larger collection that I could palpate but could not entirely expressed through the incision superior to the nipple-areolar complex. I then made a counter incision inferior to the nipple-areolar complex, and the same manner as the initial incision. Through this incision I was able to express a significant amount of murky fluid. I took a 1 millimeter sq including epidermis, dermis and subcutaneous tissue for a skin biopsy to rule out inflammatory breast cancer. I excised this from the area right next to the skin incision. Once the fluid output slowed down, I used a tonsil clamp to push a quarter-inch Renzo drain into the abscess cavity. I then secured this to the skin using a 3 0 nylon suture. I then put a Steri- Strip on the superior incision. I then covered the entire wound Proctor drain with stack of 4x4s, secured with tape. At this point the needle sponge and instrument counts were correct. The specimens were passed off the table for pathology. I left the room for extubation. The patient was awakened from anesthesia and extubated. She was transferred to the postanesthesia care unit in stable condition. Complications: none Post-operative Condition: stable Disposition: PACU Plan for aftercare: Transfer to acute care unit for IV antibiotics, wound care, and pain control
[2020-01-02] MEDS: BUPIVACAINE 0.25% W/ EPI 30 ML VIAL INJ (17:21)
[2020-01-02] MEDS: ACETAMINOPHEN 325 MG TABLET 650 MG PO (18:29)
--- NOTE | 2020-01-02 18:31 | SUR.PHASEI ---
Pt transferred to acute care floor in stable condition, vss. pt alert and talking to RN during transport. Bedside report given to JIMBO Bansal on acute care floor. Transferred care of pt at that time to JIMBO Bansal at that time.
[2020-01-02] MEDS: DOCUSATE 100 MG CAPSULE PO (20:10)
[2020-01-02] MEDS: MORPHINE 2 MG/ML INJ IV ×2 (20:17→23:18)
--- NOTE | 2020-01-02 20:30 | PC.NURSE ---
Center RN: Assisted pt set up and use Medela breast pump. Discussed slowly increasing the time between pumping, and decreasing the minutes of pumping, to prevent discomfort or complications while weaning. Enc pt to only pump to comfort, and to relieve pressure, but not to fully empty breasts. Will discuss plan of care further with insurance consultant and adjust plan as needed.
--- NOTE | 2020-01-02 22:33 | PC.NURSE ---
Admit/Evening Shift Note- Patient arrived to room via bed from PACU at 1805. Admit questions done, medications reviewed, and physical assessment done. Patient alert and oriented and able to make needs known to staff. Patient pleasent, calm, and cooperative with care. Oriented patient to bed and bed controls, room, bathroom, lights, phone, menu, and call waddell/tv remote. Breast pump brought up to patients room from L&D. L&D nurse came up to assist patient with pumping. BReast milk placed in medication fridge. SCD's on to BLE. Patient calls appropriatly for assistance. Safety measures in place. call waddell and phone within reach. Will continue to monitor.
--- NOTE | 2020-01-02 23:59 | PC.NURSE ---
2330: Assisted pt with breast pump placement and use. Discussed instructions from MAGED Lacey: pump only to comfort and to relieve pressure, apply ice to both breasts and compression if possible to left breast at this time. Pt tolerated well, less than 10 minutes of pumping.
[2020-01-03 00:10] VITALS: BP 100/57; PULSE 88; RESP 16; TEMP 36.5; O2SAT 96
[2020-01-03] MEDS: ACETAMINOPHEN 325 MG TABLET 650 MG PO ×4 (00:18→18:27)
--- NOTE | 2020-01-03 00:55 | PC.NURSE ---
Addendum entered by Armida Kulkarni R.N. 01/03/20 06:26: Patient medicated for 4/10 pain with Oxycodone (in anticipation of breast pumping) as well as scheduled Tylenol. Addendum entered by Armida Kulkarni R.N. 01/03/20 03:27: Patient medicated with Morphine per request prior to initiating breast pumping. Addendum entered by Armida Kulkarni R.N. 01/03/20 01:30: Noted that wound culture gram stain is positive for gm + cocci. Patient placed on contact precautions; will inform patient when she is next awake. Original Note: Seen and assessed at 0030. Patient is alert and oriented. Breath sounds CTA with RA sat of 96%. HRR. BP lower at 100/57. Denies nausea. BT present and abdomen is soft. Denies dysuria, frequency or urgency. Able to move self in bed and SBA provided when up to bathroom due to feeling of being lightheaded. OB RN up earlier and assisted patient in use of breast pump. Dressing to right breast now changed and dressing with serosanguinous drainage. Steri strips are intact. Renzo drain noted. Dull redness to medial aspect of breast and area to 2 above steristrips is firm to touch. States pain is currently 3/10 after receiving Morphine prior to use of breast pump and now medicated with scheduled Tylenol and provided ice packs. Wearing bilateral calf SCD's. Fall risk score is low; patient verbalizes agreement to call for assistance prior to getting out of bed.
[2020-01-03] MEDS: MORPHINE 2 MG/ML INJ IV ×2 (03:22→08:47)
[2020-01-03 03:35] VITALS: BP 93/51; PULSE 80; RESP 16; TEMP 36.3; O2SAT 96
[2020-01-03 05:30] LABS: Hematocrit 31.7 % (36-46); Hemoglobin 10.3 g/dL (12.0-16.0); Mean Corpuscular HGB Conc 32.6 % (30-36); Mean Corpuscular Hemoglobin 28.5 PG (26-34); Mean Corpuscular Volume 87.6 fL (80-100); Platelet Count 129 X10^3/uL (150-400); Red Blood Cell Count 3.62 X10^6/uL (4.0-5.2); Red Cell Distribution Width 14.3 % (11.6-14.8); White Blood Cell Count 27.7 X10^3/uL (4.5-11.0)
[2020-01-03 05:33] LABS: Add Manual Diff / Slide Review YES
[2020-01-03 05:55] LABS: Neutrophils Absolute Manual 26038 /uL (3000-5900); RBC Morphology Normal Morphology; Total Cells Counted 100
[2020-01-03] MEDS: OXYCODONE IR 5 MG TABLET PO ×4 (06:20→19:24)
[2020-01-03 08:00] VITALS: BP 93/58; PULSE 82; RESP 18; TEMP 36.7; O2SAT 97
[2020-01-03] MEDS: DOCUSATE 100 MG CAPSULE PO ×2 (08:26→21:11)
[2020-01-03] MEDS: SERTRALINE 50 MG TABLET 100 MG PO (08:26)
[2020-01-03] MEDS: SODIUM CHLORIDE 0.9% FLUSH 10 ML IV ×3 (08:46→21:12)
[2020-01-03] MEDS: VANCOMYCIN 1,250 MG in SODIUM CHLORIDE 0.9% 250 ML IV ×2 (08:47→16:12)
--- NOTE | 2020-01-03 10:51 | PC.NURSE ---
Addendum entered by Celsa Santoyo R.N. 01/03/20 15:40: Another RN pre-medicated with pt at 1440 prior to next pumping. Evening RN aware at 1530. Addendum entered by Celsa Santoyo R.N. 01/03/20 14:30: Pt moved from room 222 to room 209 at 1430. Addendum entered by Celsa Santoyo R.N. 01/03/20 12:12: Spoke with Varsha Swann prior to entering pt's room around 1125. Per recommendation from Varsha, Decrease breast feeding time from 10 mins pumping to 9 mins, and decrease again if pt tolerates. At 1130, breast pumping done with this RN assist at 1130 for 9 mins, right breast producing less than compared to right breast. We are now pumping and dumping the breast milk. Right breast dressing changed, removed 6 4X4 gauze dressings for moderate amount of sero sang drainage, serous leaking noted to 12:00 area above nipple at the steri-strip site. 5:00 Incision and hema drain site has sero-sang leakage. Area cleansed with NS, pat dry with gauze and 7 4X4 gauze dressings placed over incision areas and secured with 3 strips of paper tape. Pt remains in contact isolation. Original Note: Day Shift- Called to Center at 1040, asked for assistance with breast feeding pump. No more empty pump bottles available at this time. Varsha Swann, IBCLC will see pt today. Pt reports 5/10 aching, tender, pressure, throbbing to right breast. Hardened and tender to touch to upper breast. PRN Morphine IV given at 0847 and PRN Oxycodone given at 1015 prior to breast pumping time at 1100. Right chest breast dressing changed by night RN at 0700 with this RN's observation. Hema drain in place, moderate amount ot sero-snag drainage to several 4X4 gauze dressings.
[2020-01-03 12:00] VITALS: BP 105/63; PULSE 87; RESP 16; TEMP 37.1; O2SAT 97
--- NOTE | 2020-01-03 13:00 | CM.IDA ---
Initial DCP Assessment Note: Pt is a 39 yo female, resident of [place]. Pt presents after giving 4 weeks ago, developed severe mastitis that required surgical I+D of an abscess on her right breast yesterday w/ Dr Ribera PCP: Balwinder Plummer Payer: Travis/Katiana Pt is on contact precautions for suspected MRSA. She is using a medela breast pump for comfort, she is now pumping and dumping Reviewed chart and attempted assessment this morning; JIMBO Steen and Varsha Swann, technical assistance consultant were discussing POC for pt this morning. It is expected that pt will remain here this evening, and possibly will be cleared to return home tomorrow. Varsha recommending decrease in pumping, pt plans to dry up her supply and baby being transitioned to formula. Baby currently w/supportive Dad/family. This AUTO TOP MECHANIC unable to complete assessment at this time since JIMBO Steen and Varsha Swann entering room in addition pt remains uncomfortable, so assessment may not be appropriate at this time. P: DC home w/supportive family via pov when medically cleared. If AUTO TOP MECHANIC available Sunday; pt may benefit from a visit before DC to confirm all needs are met for DC back home w/ KRISTEL Tavarez
--- NOTE | 2020-01-03 13:40 | P.PN_ITS ---
Subjective Subjective Date Patient Seen: 01/03/20 Time Patient Seen: 13:41 Interval history: The patient is a woman post incision and drainage of a large breast abscess on the right. She complains of pain. She says it does not feel whole lot better than preop though her operation was just yesterday afternoon. She feels it is more like a bruise now. Exam Vital Signs (past 8 hours): - 01/03/20 08:00 01/03/20 12:00 Temperature 98.1 F 98.7 F Pulse Rate 82 87 Respiratory Rate 18 16 Blood Pressure 93/58 L 105/63 Pulse Oximetry 97 97 Oxygen Delivery Method Room Air Oxygen Flow Rate 0 Narrative Exam Narrative: Breast is reddened tender to palpation. Drainage is purulence. Objective Labs Result Diagrams: 01/03/20 05:10 01/02/20 13:00 Labs: Laboratory Results - last 24 hr 01/03/20 01/03/20 05:10 05:10 WBC 27.7 H RBC 3.62 L Hgb 10.3 L Hct 31.7 L MCV 87.6 MCH 28.5 MCHC 32.6 RDW 14.3 Plt Count 129 L Neut % (Auto) Not Reportable Lymph % (Auto) Not Reportable [place] % (Auto) Not Reportable Eos % (Auto) Not Reportable Baso % (Auto) Not Reportable Lymph # (Auto) Not Reportable [place] # (Auto) Not Reportable Baso # (Auto) Not Reportable Total Counted 100 Seg Neutrophils % 88.0 H Band Neutrophils % 6.0 Lymphocytes % (Manual) 1.0 L Monocytes % (Manual) 5.0 Neutrophils # (Manual) 89322 H RBC Morphology Normal morphology Procalcitonin 6.90 H Assessment & Plan Post-op Postoperative Procedures: Procedures Operation Date: 01/02/20 15:30 Actual Procedures Side Surgeon p Incision and drainage right breast abscess and right breast skin biopsy Right Leah Ribera MD Postoperative status narrative: Post I and D of a large right breast abscess. Little early to tell how things are going. White blood cell count mau but that is not surprising. Postoperative plan narrative: Will start on Ancef as she is growing Staph. This in addition to treatment for MRSA with vancomycin. Should have sensitivities tomorrow. Patient may benefit from wearing some kind of a support brought. It does not have to be tight but leaving her breasts hang is probably increasing her pain. Check CBC in a.m.. Continue IV antibiotics. Quality VTE Deep Vein Thrombosis/Pulmonary Embolism Present on Admission: No
[2020-01-03] MEDS: polyethylene glycoL 3350 17 GM POWD.PACK PO (14:21)
[2020-01-03] MEDS: CEFAZOLIN 2 GM/100 ML FROZ.PIGGY IV ×2 (14:23→19:40)
[2020-01-03 16:28] VITALS: BP 99/59; PULSE 81; RESP 18; TEMP 36.6; O2SAT 97
[2020-01-03 21:00] VITALS: BP 106/62; PULSE 84; RESP 18; TEMP 37.4
--- NOTE | 2020-01-03 22:22 | PC.NURSE ---
Pt is pumping and throwing away her milk, q 4 hours. She needs assistance with this process and prefers to be pre medicated. 4 x 4 gauze x 6 and paper tape is changed when she is done. She is pumping now for 7 minutes. L breast is soft and has milk, R breast is hard and red, with two small incisions above areola and hema drain below. The drain is dripping small amount sero sanguinous mainly when pumping. Pt rates pain 2-4/10. She is voiding clear yellow qs, +BT, LS clear and S1, S2. She is disappointed she has to stop nursing as her baby is only 4 weeks old.
[2020-01-04] VITALS (7 sets, daily range): BP systolic 112–133; BP diastolic 52–81; PULSE 70–84; RESP 15–18; TEMP 36.5–37.2; O2SAT 90–94
[2020-01-04] MEDS: ACETAMINOPHEN 325 MG TABLET 650 MG PO ×4 (00:15→23:57)
[2020-01-04] MEDS: VANCOMYCIN 1,250 MG in SODIUM CHLORIDE 0.9% 250 ML IV ×2 (00:15→08:41)
[2020-01-04] MEDS: OXYCODONE IR 5 MG TABLET PO ×5 (01:33→23:58)
--- NOTE | 2020-01-04 01:41 | PC.NURSE ---
NOC Shift. pt AO and receptive to care. Infusing intermittent ABX to left AC PIV and pt tolerating well. Assisting pt with bilateral breast pumping q4h and changed gauze dressing to right breast during each pump session. pt c/o tenderness and 4/10 pain to right breast. Breast is warm and harder when compared to the left breast. Up SBA to BR, pt declining hospital socks although encouraged. [place] drain to lower right breast and two steri-strip sites covered with gauze dressing. Pumping both breast but milk only drained from left breast (and dumped). Administered midnight Tylenol and oxycodone at 0135 for 4/10 pain.
[2020-01-04] MEDS: CEFAZOLIN 2 GM/100 ML FROZ.PIGGY IV ×3 (04:03→18:58)
[2020-01-04 06:38] LABS: Add Manual Diff / Slide Review NO; Basophils Absolute Auto 100 /uL (0-100); Basophils Percent Auto 0.4 % (0-2); Eosinophils Absolute Auto 1000 /uL (0-450); Eosinophils Percent Auto 5.4 % (2-4); Hematocrit 31.1 % (36-46); Lymphocytes Absolute Auto 2400 /uL (1100-4500); Lymphocytes Percent Auto 12.8 % (25-40); Mean Corpuscular Volume 87.5 fL (80-100); Monocytes Absolute Auto 800 /uL (0-900); Monocytes Percent Auto 4.4 % (3-14); Neutrophils Absolute Auto 14400 /uL (1500-7000); Platelet Count 155 X10^3/uL (150-400); Red Blood Cell Count 3.56 X10^6/uL (4.0-5.2); Red Cell Distribution Width 14.6 % (11.6-14.8); White Blood Cell Count 18.7 X10^3/uL (4.5-11.0)
[2020-01-04 08:18] LABS: Vancomycin Trough 11.7 ug/mL (10-20)
[2020-01-04] MEDS: polyethylene glycoL 3350 17 GM POWD.PACK PO (08:41)
[2020-01-04] MEDS: DOCUSATE 100 MG CAPSULE PO ×2 (08:42→20:33)
[2020-01-04] MEDS: SERTRALINE 50 MG TABLET 100 MG PO (08:42)
[2020-01-04] MEDS: VANCOMYCIN TROUGH 1 REQUEST MISC (08:42)
[2020-01-04] MEDS: SODIUM CHLORIDE 0.9% FLUSH 10 ML IV ×2 (08:43→21:04)
--- NOTE | 2020-01-04 13:19 | PM.PNPO.1 ---
Subjective Subjective Date Patient Seen: 01/04/20 Time Patient Seen: 13:19 Interval history: Patient feels a little better than yesterday. Still a lot of bruised feeling in her upper breast. Did not really have a brought that would fit her engorged breasts. Exam Vital Signs (past 8 hours): - 01/04/20 08:30 01/04/20 11:20 Temperature 98.2 F 98.5 F Pulse Rate 80 73 Respiratory Rate 16 16 Blood Pressure 119/72 112/60 Pulse Oximetry 92 93 Oxygen Delivery Method Room Air Oxygen Flow Rate 0 Narrative Exam Narrative: Still a significant amount of cellulitis and induration the upper half of the breast. The lower looks better. Objective Labs Result Diagrams: 01/04/20 06:19 01/02/20 13:00 Labs: Laboratory Results - last 24 hr 01/04/20 01/04/20 06:19 07:40 WBC 18.7 H RBC 3.56 L Hgb 10.0 L Hct 31.1 L MCV 87.5 MCH 28.0 MCHC 32.0 RDW 14.6 Plt Count 155 Neut % (Auto) 77.0 H Lymph % (Auto) 12.8 L [place] % (Auto) 4.4 Eos % (Auto) 5.4 H Baso % (Auto) 0.4 Neut # (Auto) 06815 H Lymph # (Auto) 2400 [place] # (Auto) 800 Eos # (Auto) 1000 H Baso # (Auto) 100 Vancomycin Trough 11.7 Assessment & Plan Post-op Postoperative Procedures: Procedures Operation Date: 01/02/20 15:30 Actual Procedures Side Surgeon p Incision and drainage right breast abscess and right breast skin biopsy Right Leah Ribera MD Postoperative status narrative: Postop day 2 I&D of a large breast abscess. This screw a routine staff. Postoperative plan narrative: Vancomycin stopped. Ancef continued. Will keep her at least another day. Quality VTE Deep Vein Thrombosis/Pulmonary Embolism Present on Admission: No
--- NOTE | 2020-01-04 13:40 | PC.NURSE ---
Days shift note: Patient awake, alert, and pleasant. VSS and afebrile this shift. Up in room, independently ambulating in room. Continue with self expressing breast milk via pump as ordered. Reducing time every four hours. Per patient erythema improved slightly from previous day, Pen mau to lower part of breast with min amount of blood tinged serous drainage, non odorous. Dressing changed as ordered with gauze. SCD in use while in bed. Dr. Gardiner at patient side, updating regarding plan of care, including possibly DC home tomorrow.
[2020-01-05] MEDS: CEFAZOLIN 2 GM/100 ML FROZ.PIGGY IV ×3 (04:17→19:40)
[2020-01-05 07:26] LABS: Hematocrit 31.9 % (36-46); Hemoglobin 10.3 g/dL (12.0-16.0); Mean Corpuscular HGB Conc 32.3 % (30-36); Mean Corpuscular Volume 86.9 fL (80-100); Platelet Count 183 X10^3/uL (150-400); Red Blood Cell Count 3.68 X10^6/uL (4.0-5.2); Red Cell Distribution Width 14.7 % (11.6-14.8); White Blood Cell Count 12.9 X10^3/uL (4.5-11.0)
[2020-01-05 07:32] LABS: Add Manual Diff / Slide Review YES
[2020-01-05 07:45] LABS: Neutrophils Absolute Manual 9030 /uL (3000-5900); RBC Morphology Normal Morphology; Total Cells Counted 100
[2020-01-05 08:50] VITALS: BP 120/71; PULSE 80; RESP 16; TEMP 36.7; O2SAT 95
[2020-01-05] MEDS: OXYCODONE IR 5 MG TABLET PO ×3 (08:54→20:26)
[2020-01-05] MEDS: DOCUSATE 100 MG CAPSULE PO ×2 (08:55→19:41)
[2020-01-05] MEDS: SERTRALINE 50 MG TABLET 100 MG PO (08:55)
[2020-01-05] MEDS: polyethylene glycoL 3350 17 GM POWD.PACK PO (08:55)
[2020-01-05] MEDS: ACETAMINOPHEN 325 MG TABLET 650 MG PO ×3 (08:56→18:21)
[2020-01-05] MEDS: SODIUM CHLORIDE 0.9% FLUSH 10 ML IV ×2 (08:58→19:41)
--- NOTE | 2020-01-05 11:31 | DI.US.S_ITS ---
LIMITED ULTRASOUND OF RIGHT BREAST: 01/05/2020 CLINICAL: Short-term follow-up of right breast abscess. Patient has undergone I 4 weeks post /nursing. Comparison is made to exam dated: 01/02/2020 [facility]. Color flow and real-time ultrasound of the right breast retroareolar were performed. Hwang scale images of the real-time examination were reviewed. The abscess in the right breast central to the nipple anterior depth is no longer seen. There is edematous breast tissue with increased vascularity, but no organized fluid collection. IMPRESSION: BENIGN Interval resolution of abscess post incision and drainage. No residual fluid collection. Clinical follow up is recommended. Screening mammography beginning at age 40 is recommended. Findings and recommendations conveyed to the patient at time of exam. This exam was interpreted at Station ID: [id number]. Electronically Signed By: Lizbet leiva/:01/05/2020 14:18:18 letter sent: Clinical Evaluation Ultrasound BI-RADS: 2 Benign
--- NOTE | 2020-01-05 11:32 | PM.PN.1 ---
Subjective Subjective Date Patient Seen: 01/05/20 Time Patient Seen: 11:32 Interval history: Feels pain is overall improving of R breast but continues to feel full unsure if engorged vs retained abscess. Exam Vital Signs (past 8 hours): - 01/05/20 08:50 Temperature 98.0 F Pulse Rate 80 Respiratory Rate 16 Blood Pressure 120/71 Pulse Oximetry 95 Oxygen Delivery Method Room Air Oxygen Flow Rate 0 Narrative Exam Narrative: Gen Adult female alert and oriented. R breast fluctuence no erythema no active drainage but per RN appears to have milk discharge from drain site Objective Labs Result Diagrams: 01/05/20 07:12 01/02/20 13:00 Labs: Laboratory Results - last 24 hr 01/05/20 07:12 WBC 12.9 H RBC 3.68 L Hgb 10.3 L Hct 31.9 L MCV 86.9 MCH 28.0 MCHC 32.3 RDW 14.7 Plt Count 183 Neut % (Auto) Not Reportable Lymph % (Auto) Not Reportable [place] % (Auto) Not Reportable Eos % (Auto) Not Reportable Baso % (Auto) Not Reportable Lymph # (Auto) Not Reportable [place] # (Auto) Not Reportable Baso # (Auto) Not Reportable Total Counted 100 Seg Neutrophils % 69.0 Band Neutrophils % 1.0 L Lymphocytes % (Manual) 11.0 L Atypical Lymphs % 11.0 H Monocytes % (Manual) 4.0 Eosinophils % (Manual) 4.0 Neutrophils # (Manual) 9030 H RBC Morphology Normal morphology Assessment & Plan Assessment & Plan narrative: 39F with mastitis and ID of R breast abscess. Will repeat US today unclear if retained abscess vs engorgment. Clinically pain and WBC are improving. Continue drain and ancef Quality VTE Deep Vein Thrombosis/Pulmonary Embolism Present on Admission: No
[2020-01-05 12:40] VITALS: BP 122/72; PULSE 76; RESP 16; TEMP 36.6; O2SAT 95
--- NOTE | 2020-01-05 14:16 | PC.NURSE ---
SHIFT SUMMARY: PATIENT'S DRSG TO RIGHT BREAST CHANGED AFTER SHE EXPRESSED MILK WITH BREAST PUMP. THE DRSG WAS APPROX 25% SATURATED WITH MILKY/SEROUS/SANG DRAINAGE AT SITE AT [place] AND DISTAL TO SITE. PATIENT HAD HER BREAST U/S TODAY.
[2020-01-05 15:10] VITALS: BP 121/78; PULSE 64; RESP 16; TEMP 36.7; O2SAT 94
[2020-01-05 19:30] VITALS: BP 131/73; PULSE 75; RESP 16; TEMP 36.8; O2SAT 96
--- NOTE | 2020-01-05 23:32 | PC.NURSE ---
Evening note: Pt oriented x 3 & situation, pleasant. VS stable, reports good pain relief from oxycodone. SBA to BR tonight to shower, both right breast and IV site covered with plastic to protect. After shower I changed her 4x4 drsg to right breast, old 4x4's mostly wet with thin milky-yellow serous output. [place] intact. Right breast cleaned with NS, allowed to dry, covered with sterile 4x4's & paper tape. IV antibiotic infusing at 1/2 rate due to IV sensitivity, flushes with no redness or sign of infiltration. Pt denied pain with IV antibiotic infusion. Denies other needs/concerns tonight, now sleeping. Full report given to Rose CHOI.
[2020-01-06] VITALS: BP 115/72; PULSE 62; RESP 18; TEMP 36.3; O2SAT 96
[2020-01-06] MEDS: ACETAMINOPHEN 325 MG TABLET 650 MG PO ×2 (00:07→05:23)
--- NOTE | 2020-01-06 01:19 | PC.NURSE ---
RT. breast drsg. noted moderate amount of drainage noted. Dressing changed will monitor.
[2020-01-06] MEDS: OXYCODONE IR 5 MG TABLET PO ×2 (02:03→05:22)
[2020-01-06] MEDS: CEFAZOLIN 2 GM/100 ML FROZ.PIGGY IV (03:27)
[2020-01-06] MEDS: SODIUM CHLORIDE 0.9% FLUSH 10 ML IV ×2 (04:37→08:29)
[2020-01-06 06:00] VITALS: BP 116/65; PULSE 54; RESP 16; TEMP 36.8; O2SAT 99
[2020-01-06 06:57] LABS: Add Manual Diff / Slide Review YES; Hematocrit 32.5 % (36-46); Hemoglobin 10.7 g/dL (12.0-16.0); Mean Corpuscular HGB Conc 32.8 % (30-36); Mean Corpuscular Hemoglobin 28.5 PG (26-34); Mean Corpuscular Volume 86.8 fL (80-100); Platelet Count 198 X10^3/uL (150-400); Red Blood Cell Count 3.74 X10^6/uL (4.0-5.2); Red Cell Distribution Width 14.6 % (11.6-14.8); White Blood Cell Count 9.2 X10^3/uL (4.5-11.0)
[2020-01-06 07:19] LABS: Neutrophils Absolute Manual 4876 /uL (3000-5900); RBC Morphology Normal Morphology; Total Cells Counted 100
[2020-01-06] MEDS: polyethylene glycoL 3350 17 GM POWD.PACK PO (08:29)
[2020-01-06] MEDS: DOCUSATE 100 MG CAPSULE PO (08:29)
[2020-01-06] MEDS: SERTRALINE 50 MG TABLET 100 MG PO (08:29)
[2020-01-06 08:30] VITALS: BP 127/75; PULSE 69; RESP 18; TEMP 36.4; O2SAT 94
--- NOTE | 2020-01-06 09:29 | P.DS_ITS ---
History of Present Illness History of Present Illness Date Patient Seen: 01/06/20 Time Patient Seen: 09:30 Chief complaint: mastitis/engorged breasts clogged up, throwing up Narrative: This is a 39 yo woman who is 4 weeks out from delivery of her child. She has had intermittent low-grade mastitis in her left breast, and more recently in her right breast. She has been able to resolve her symptoms with antibiotics, pumping, and self expression of milk until today. Her right breast is no longer responding to self expression or pumping. She was put on dox ycycline by her program development specialist, and then switched to Augmentin. She has had a mammogram in the last few years for lumps in her breast, but was reported as benign. She has no primary relatives with breast lumps or cancers, but her grandmother had breast cancer. Her white count in the ER is 22, she is tac hycardic, and she has an ultrasound which shows a 6.5 x 4.5 cm retroareolar abscess. 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 She remained for IV antibiotic therapy postoperatively. Cultures demonstrates Staph aureus. She had a repeat ultrasound of the right breast 01/04 which demonstrates complete resolution of the fluid collection. She continues to have drainage of milk from the drain site consistent with a milk duct fistula . At the time of discharge she is afebrile her white count has resolved and her pain is well controlled. Status at Discharge Cognitive/behavioral status at discharge: oriented Time Spent with Patient Time spent: Greater than 30 minutes Exam Vital Signs (past 8 hours): - 01/06/20 06:00 01/06/20 08:30 Temperature 98.3 F 97.6 F Pulse Rate 54 L 69 Respiratory Rate 16 18 Blood Pressure 116/65 127/75 Pulse Oximetry 99 94 Oxygen Delivery Method Room Air Oxygen Flow Rate 0 Narrative Exam Narrative: General adult female alert oriented no acute distress Right breast no erythema slightly engorged, milky substance spontaneously draining at the drain insertion site. Objective Labs Result Diagrams: 01/06/20 06:08 01/02/20 13:00 Labs: Laboratory Results - last 24 hr 01/06/20 06:08 WBC 9.2 RBC 3.74 L Hgb 10.7 L Hct 32.5 L MCV 86.8 MCH 28.5 MCHC 32.8 RDW 14.6 Plt Count 198 Neut % (Auto) Not Reportable Lymph % (Auto) Not Reportable [place] % (Auto) Not Reportable Eos % (Auto) Not Reportable Baso % (Auto) Not Reportable Lymph # (Auto) Not Reportable [place] # (Auto) Not Reportable Baso # (Auto) Not Reportable Total Counted 100 Seg Neutrophils % 53.0 Lymphocytes % (Manual) 20.0 L Atypical Lymphs % 10.0 H Monocytes % (Manual) 9.0 Eosinophils % (Manual) 8.0 H Neutrophils # (Manual) 4876 RBC Morphology Normal morphology Discharge Plan Discharge Plan Patient Disposition: Home Discharge orders & Medications Prescriptions: New oxycodone 5 mg tablet 5 mg PO Q6H PRN (Reason: pain) Qty: 20 RF: 0 cephalexin [Keflex] 500 mg capsule 500 mg PO Q12H Qty: 10 RF: 0 ibuprofen 600 mg tablet 600 mg PO Q8H PRN (Reason: pain) Qty: 30 RF: 0 Continued sertraline 100 mg tablet 100 mg PO DAILY RF: 0 acetaminophen 325 mg Tablet 650 mg PO Q6HR PRN (Reason: Pain, Mild (1-3)) 14 Days Qty: 60 RF: 2 docusate sodium [DOK] 100 mg Capsule 100 mg PO BID 14 Days Qty: 28 RF: 0 ibuprofen 600 mg Tablet 600 mg PO Q6HR PRN (Reason: Pain, Mild (1-3)) 14 Days Qty: 60 RF: 2 Ygd-C-Kjohyg Cream 1 applic topical PRN PRN (Reason: Tenderness) 365 Days Qty: 60 RF: 1 Follow up/Referrals: Balwinder Plummer [Primary Care Provider] - Leah Ribera MD [Physician] - (Call the office at [facility] on Sunday to make an appointment to see Dr. Ribera next week on Sunday or in the office.) Diet/Activity/Treatments Diet: Diet as Tolerated Activity: Avoid strenuous activity. Wear a supportive bra. Skin/Wound/Dressing Care Report to your healthcare provider any signs of infection, such as:: chills, fever, night sweats, increased pain, unusual drainage and unusual redness Dressing: Change dressing twice daily. Ok to shower. Remove dressing, shower letting gentle soap and water rinse over the incisions. Do not scrub. Be careful not to pull out the drain. Pat dry and replace the dressing after showering. Visit Report/Discharge Packet Instructions: DI for Incision and Drainage of a Skin Abscess, [facility]: Wound Care Discharge Data Primary Care Provider: Balwinder Plummer VTE Deep Vein Thrombosis/Pulmonary Embolism Present on Admission: No
--- NOTE | 2020-01-06 10:54 | PC.NURSE ---
DISCHARGE: PATIENT SHOWERED, PROVIDED 4X4'S BOX OF 10 X 3 BOXES TO TAKE HM FOR DRSG CHANGES. PROVIDED SCRIPT FOR OXYCODONE. INSTRUCTED TO INSURANCE LICENSING SUPERVISOR ELECTRONICALLY SENT [employer]. REVIEWED ADVERSE S/SX'S TO MONITOR FOR AND CALL SURGEON IF OCCUR, 911 FOR EMERGENCY. REVIEWED WOUND CARE INSTRUCTIONS. SHE WILL CALL TO SCHEDULE HER F/U APPT DIRECTED. HER FRIEND ARRIVED TO PICK HER UP. PATIENT LEFT W/ ALL BELONGINGS AND PAPERWORK IN NO S/SX'S OF DISTRESS BY WC WITH AUTO SERVICE DISPATCHER [employer].
--- NOTE | 2020-01-06 11:05 | CM.DPC ---
DCP Discharge Home Per MD, pt is medically stable to d/c home today with supportive family and no identified barriers to discharge. Pt tolerated I&D well with no needs identified for discharge. Per RN, pt is agreeable with d/c home with family today. Plan: Patient to d/c home today via spouse POV and no SW needs at this time. KRISTEL Magana
== END 2020-01-06 10:56 | disposition home or self-care (01) | DRG 776 ==
LOC: ED 15:02 → AC 15:08
PROVIDERS: Surgery; Admitting Provider Surgery; Emergency Provider Emergency Medicine; PCP Physician Assistant Medical; Referring Provider Emergency Medicine; Visit Provider Surgery
PROC: 0H9T00Z Drainage of Right Breast with Drainage Device, Open Approach (ICD-10-PCS; CPT 19301; principal; 2020-01-02 15:30)
DX: O91.13 Abscess of breast associated with lactation (principal); F32.9 Major depressive disorder, single episode, unspecified; F41.9 Anxiety disorder, unspecified; B95.61 Methicillin susceptible Staphylococcus aureus infection as the cause of diseases classified elsewhere
CPT/HCPCS: 19020; 36415; 76642; 80048; 80202; 83605; 84145; 85025; 87070; 87075; 87077; 87147; 87186; 87205; 96361; 96374; 96375; 99222; 99284; J0690; J1100; J2270; J2405; J2704; J3010

== ENCOUNTER → 2020-02-09 09:31 | Outpatient (CLI) | payer OTHER, SELFPAY ==
[2020-01-02 21:47] VITALS: BMI 28.2
--- NOTE | 2020-02-09 | DI.US.S_ITS ---
LIMITED ULTRASOUND OF LEFT BREAST: 02/09/2020 CLINICAL: Left breast pain, redness. Possible abscess. (History right breast abscess). Comparison is made to exam dated: Contralateral right breast 01/02/2020 [facility]. Color flow and real-time ultrasound of the left breast 12-1 o'clock region were performed. Hwang scale images of the real-time examination were reviewed. There is a benign 4.9 cm x 3.9 cm x 3.1 cm irregular fluid collection with a thickened wall in the left breast at 12:30 o'clock posterior depth 5 cm from the nipple. This irregular fluid collection is hypoechoic with an echogenic boundary and internal echoes. This correlates to the reported pain. Color flow imaging demonstrates that there is no vascularity present. There also is a benign 1.9 cm x 1.4 cm x 1.4 cm irregular fluid collection in the left breast at 12:30 o'clock posterior depth 5 cm from the nipple. This irregular fluid collection is hypoechoic with an echogenic boundary and internal echoes. This correlates to the reported pain and is near the skin opening which is draining purulent fluid. Color flow imaging demonstrates that there is no vascularity present. This collection appears to communicate with the above described collection. Note: Compared to the recently drained collection in the contralateral right breast, the collection has more internal debris. The patient is currently lactating. IMPRESSION: BENIGN Left breast loculated bilobed fluid collection measuring 4.9 cm and 1.9 cm is consistent with an abscess. This is near the site of skin opening with purulent discharge. -Recommend incision and drainage and continued clinical management. There is no sonographic evidence of malignancy. Return to annual mammogram screening schedule is recommended usually to commence at age 40. This exam was interpreted at Station ID: [id number]. Electronically Signed By: Shreyas Del Valle M.D. [facility]/:02/09/2020 11:33:28 letter sent: Clinical Evaluation Ultrasound BI-RADS: 2 Benign
== END ==
PROVIDERS: PCP Physician Assistant Medical; Referring Provider Nurse Practitioner Obstetrics & Gynecology; Visit Provider Nurse Practitioner Obstetrics & Gynecology
DX: N64.4 Mastodynia (principal); N64.89 Other specified disorders of breast
CPT/HCPCS: 76642

== ENCOUNTER 2020-02-09 11:14 | Observation (INO) | payer OTHER, SELFPAY ==
[2020-01-02 21:47] VITALS: BMI 28.2
[2020-02-09] VITALS (10 sets, daily range): BP systolic 100–133; BP diastolic 58–90; PULSE 53–73; RESP 9–16; TEMP 35.9–36.6; O2SAT 95–100; BMI 27.9
--- NOTE | 2020-02-09 12:38 | ED_ITS ---
HPI - Skin/Abscess/Foreign Bdy <ALBERTO Perez - Last Filed: 02/09/20 19:18> General Chief complaint: Skin/Abscess/Foreign Body Stated complaint: abcess on breast/ per surgeon from us Time Seen by Provider: 02/09/20 12:09 Source: patient Mode of arrival: Ambulatory Limitations: no limitations History of Present Illness HPI narrative: 39yo female who who is currently 8-9 week post was sent to the emergency department per OB and surg for the develop a breast abscess. While breast feeding patient developed to episodes of left breast mastitis and 1 episode of right breast mastitis. Patient developed a abscess approximately 6.5cm in diameter to right breast which was surgically I&D on 01/02/2020 with successful resolution of cyst. Patient completed 10 days of dicloxacillin antibiotic therapy, finished the last day of medication yesterday. Patient reports returning left breast pain, noted purulent discharge from a small 1 cm wound on L breast. Had an Ultrasound today, ordered by OB, shows two fluid collections of 4.9 and 1.9cm of L breast. . Patient was instructed to be seen in the emergency department for recommended I & D. Denies fevers, chills, nausea, vomiting, diarrhea, chest pain, shortness of breath, or any other concerns. States she is currently not breast-feeding at this time. Related Data Home Medications Medication Instructions Recorded Confirmed sertraline 150 mg PO DAILY 12/05/19 02/09/20 Previous Rx's Medication Instructions Recorded [id number] 1 applic TOPICAL PRN PRN 365 Days 12/07/19 #60 gram acetaminophen 650 mg PO Q6HR PRN 14 Days #60 tab 12/07/19 ibuprofen 600 mg PO Q6HR PRN 14 Days #60 tab 12/07/19 ibuprofen 600 mg PO Q8H PRN #30 tab 01/06/20 amoxicillin-pot clavulanate 1 tab PO BID #14 tab 02/09/20 [Augmentin] oxycodone 5 mg PO BID PRN #30 tab 02/09/20 Allergies Allergy/AdvReac Type Severity Reaction Status Date / Time carbamazepine [From Tegretol] Allergy Verified 02/09/20 11:34 petrolatum,white AdvReac Rash Verified 02/09/20 11:34 [From Vaseline] Review of Systems <ALBERTO Perez - Last Filed: 02/09/20 19:18> Review of Systems Narrative: REVIEW OF SYSTEMS: GENERAL: Denies fever or chills. HENT: No head trauma. CARDIOVASCULAR: No chest pain or syncope. RESPIRATORY: No shortness of breath or cough. GASTROINTESTINAL: No nausea, vomiting, diarrhea, or constipation. GENITOURINARY: No flank pain or dysuria. MUSCULOSKELETAL: Reports left breast pain and tenderness, see HPI. INTEGUMENTARY: Reports left breast swelling, see HPI. Patient History <ALBERTO Perez - Last Filed: 02/09/20 19:18> Medical History Benign focal childhood epilepsy (Acute) Gestational diabetes (Inactive) Skin cancer (melanoma) (Acute) Family History Father Thyroid disorder Social History marital status: household members: spouse lives independently: Yes housing: house education level: college occupational status: employed Smoking Status: Never smoker alcohol intake: never Smoking Status: Never smoker Substance Use Type: does not use Exam <ALBERTO Perez - Last Filed: 02/09/20 19:18> Initial Vital Signs Initial Vital Signs: Vital Signs Temperature 97.9 F 02/09/20 11:30 Pulse Rate 73 02/09/20 11:30 Respiratory Rate 14 02/09/20 11:30 Blood Pressure 133/90 02/09/20 11:30 Pulse Oximetry 97 02/09/20 11:30 PHYSICAL EXAMINATION: GENERAL: Well groomed, alert, and cooperative. Answers questions promptly and appropriately. Vital signs noted. HENT: Normocephalic, atraumatic. RESPIRATORY: Normal respiratory rate, trachea midline, airway patent. No stridor, nasal flaring or accessory muscle use. MUSCULOSKELETAL: Normal gait and coordination. Equal tone and mass bilaterally. EXTREMITIES: CMS intact. Moves all extremities. SKIN: Warm, dry, soft, appropriate color for ethnicity. There is a 2 cm lesion without discharge noted to left breast approximately 1 O'clock. Approximately a 4 cm area of fluctuation noted to left breast approximately 12 O'clock, above nipple. Area with slight erythema, tender to palpation. NEURO: Alert and Oriented X 3. Good coordination. PSYCH: Appropriate affect and mood. <Anthony Caceres MD - Last Filed: 02/09/20 19:41> Initial Vital Signs Initial Vital Signs: Vital Signs Temperature 97.9 F 02/09/20 11:30 Pulse Rate 73 02/09/20 11:30 Respiratory Rate 14 02/09/20 11:30 Blood Pressure 133/90 02/09/20 11:30 Pulse Oximetry 97 02/09/20 11:30 Course <ALBERTO Perez - Last Filed: 02/09/20 19:18> Course Course Narrative: 1410: Dr. Shaw at bedside evaluating patient, accepts for surgery. Orders Ordered: ED Orders 02/09/20 13:00 Complete Blood Count AUTO DIFF Stat Comprehensive Metabolic Panel Stat Lactate (Lactic Acid) Stat Procalcitonin Stat 02/09/20 13:18 Blood Culture Stat Discontinued Medications Bupivacaine HCl (Sensorcaine 0.25% (Pf)) 30 ml INJ NOW ONE Stop: 02/09/20 16:38 Last Admin: 02/09/20 16:38 Dose: 30 ml Documented by: ANG Fentanyl (Sublimaze) 0 mcg IV Q5M PRN PRN Reason: Pain, Moderate (4-6) Sodium Chloride (Normal Saline 0.9%) 1,000 mls @ 1,000 mls/hr IV BOLUS ONE Stop: 02/09/20 13:32 Last Infusion: 02/09/20 14:10 Dose: 1,000 mls/hr Documented by: Admin: 02/09/20 13:48 Dose: 1,000 mls/hr Documented by: ROBERT Lactated Ringer's (Lactated Ringers) 1,000 mls @ 100 mls/hr IV CONT OSCAR Cefazolin Sodium/Dextrose (Ancef) 2 gm in 100 mls @ 200 mls/hr IV NOW ONE Stop: 02/09/20 14:49 Last Infusion: 02/09/20 16:00 Dose: 0 mls/hr Documented by: Admin: 02/09/20 15:54 Dose: 200 mls/hr Documented by: ALEX Lactated Ringer's (Lactated Ringers) 1,000 mls @ 42 mls/hr IV CONT OSCAR Last Infusion: 02/09/20 17:33 Dose: 0 mls/hr Documented by: Admin: 02/09/20 14:27 Dose: 42 mls/hr Documented by: GWEN Metoclopramide HCl (Reglan) 10 mg IV NOW PRN PRN Reason: Nausea And Vomiting Ondansetron HCl (Zofran) 4 mg IV NOW PRN PRN Reason: Nausea And Vomiting Oxycodone HCl (Percolone) 5 mg PO PACUNOW PRN PRN Reason: Mild or moderate pain Last Admin: 02/09/20 17:06 Dose: 5 mg Documented by: GWEN Consultations Consultation #1: Patient staffed with Dr. Caceres, discussed test results and plan of care. Vital Signs Vital signs: Vital Signs - 8 hr 02/09/20 13:09 Pulse Rate 66 Respiratory Rate 16 Blood Pressure [Left Arm] 120/58 L Pulse Oximetry 96 <Anthony Caceres MD - Last Filed: 02/09/20 19:41> Orders Ordered: ED Orders 02/09/20 13:00 Complete Blood Count AUTO DIFF Stat Comprehensive Metabolic Panel Stat Lactate (Lactic Acid) Stat Procalcitonin Stat 02/09/20 13:18 Blood Culture Stat Discontinued Medications Bupivacaine HCl (Sensorcaine 0.25% (Pf)) 30 ml INJ NOW ONE Stop: 02/09/20 16:38 Last Admin: 02/09/20 16:38 Dose: 30 ml Documented by: ANG Fentanyl (Sublimaze) 0 mcg IV Q5M PRN PRN Reason: Pain, Moderate (4-6) Sodium Chloride (Normal Saline 0.9%) 1,000 mls @ 1,000 mls/hr IV BOLUS ONE Stop: 02/09/20 13:32 Last Infusion: 02/09/20 14:10 Dose: 1,000 mls/hr Documented by: Admin: 02/09/20 13:48 Dose: 1,000 mls/hr Documented by: ROBERT Lactated Ringer's (Lactated Ringers) 1,000 mls @ 100 mls/hr IV CONT OSCAR Cefazolin Sodium/Dextrose (Ancef) 2 gm in 100 mls @ 200 mls/hr IV NOW ONE Stop: 02/09/20 14:49 Last Infusion: 02/09/20 16:00 Dose: 0 mls/hr Documented by: Admin: 02/09/20 15:54 Dose: 200 mls/hr Documented by: ALEX Lactated Ringer's (Lactated Ringers) 1,000 mls @ 42 mls/hr IV CONT OSCAR Last Infusion: 02/09/20 17:33 Dose: 0 mls/hr Documented by: Admin: 02/09/20 14:27 Dose: 42 mls/hr Documented by: GWEN Metoclopramide HCl (Reglan) 10 mg IV NOW PRN PRN Reason: Nausea And Vomiting Ondansetron HCl (Zofran) 4 mg IV NOW PRN PRN Reason: Nausea And Vomiting Oxycodone HCl (Percolone) 5 mg PO PACUNOW PRN PRN Reason: Mild or moderate pain Last Admin: 02/09/20 17:06 Dose: 5 mg Documented by: GWEN Vital Signs Vital signs: Vital Signs - 8 hr 02/09/20 13:09 Pulse Rate 66 Respiratory Rate 16 Blood Pressure [Left Arm] 120/58 L Pulse Oximetry 96 MDM - Skin/Abscess/Foreign Bdy <ALBERTO Perez - Last Filed: 02/09/20 19:18> Medical Records Attestation: I reviewed the patient's medical records. Lab Data Attestation: I reviewed the patient's lab results. Result diagrams: 02/09/20 13:00 02/09/20 13:00 Labs: Lab Results 02/09/20 02/09/20 02/09/20 Range/Units 13:00 13:00 13:00 WBC 8.5 (4.5-11.0) X10^3/uL RBC 4.30 (4.0-5.2) X10^6/uL Hgb 12.1 (12.0-16.0) g/dL Hct 37.2 (36-46) % MCV 86.5 (80-100) fL MCH 28.1 (26-34) PG MCHC 32.5 (30-36) % RDW 16.0 H (11.6-14.8) % Plt Count 186 (150-400) X10^3/uL Neut % (Auto) 62.9 (50-75) % Lymph % (Auto) 29.3 (25-40) % [place] % (Auto) 4.9 (3-14) % Eos % (Auto) 2.0 (2-4) % Baso % (Auto) 0.9 (0-2) % Neut # (Auto) 5400 (3437-6990) /uL Lymph # (Auto) 2500 (9327-1791) /uL [place] # (Auto) 400 (0-900) /uL Eos # (Auto) 200 (0-450) /uL Baso # (Auto) 100 (0-100) /uL Sodium 139 (137-145) mmol/L Potassium 3.8 (3.4-5.1) mmol/L Chloride 104 (98-107) mmol/L Carbon Dioxide 25 (22-32) mmol/L BUN 11 (7-17) mg/dL Creatinine 0.68 (0.52-1.04) mg/dL Estimated GFR > 60.0 (>60) mL/min BUN/Creatinine Ratio 16.2 (6-22) Glucose 92 (70-100) mg/dL Lactate (0.7-2.1) mmol/L Calcium 9.5 (8.4-10.2) mg/dL Total Bilirubin 0.4 (0.2-1.3) mg/dL AST 32 (14-36) IU/L ALT 22 (<35) IU/L Alkaline Phosphatase 123 (38-126) U/L Total Protein 8.2 (6.3-8.2) g/dL Albumin 4.5 (3.5-5.0) g/dL Globulin 3.7 (1.7-4.1) g/dL Albumin/Globulin Ratio 1.2 (1.0-2.8) Procalcitonin < 0.05 (<0.5) ng/mL COVID-19 PCR (Negative) 02/09/20 02/09/20 Range/Units 13:00 13:52 WBC (4.5-11.0) X10^3/uL RBC (4.0-5.2) X10^6/uL Hgb (12.0-16.0) g/dL Hct (36-46) % MCV (80-100) fL MCH (26-34) PG MCHC (30-36) % RDW (11.6-14.8) % Plt Count (150-400) X10^3/uL Neut % (Auto) (50-75) % Lymph % (Auto) (25-40) % [place] % (Auto) (3-14) % Eos % (Auto) (2-4) % Baso % (Auto) (0-2) % Neut # (Auto) (1833-5368) /uL Lymph # (Auto) (1683-6442) /uL [place] # (Auto) (0-900) /uL Eos # (Auto) (0-450) /uL Baso # (Auto) (0-100) /uL Sodium (137-145) mmol/L Potassium (3.4-5.1) mmol/L Chloride (98-107) mmol/L Carbon Dioxide (22-32) mmol/L BUN (7-17) mg/dL Creatinine (0.52-1.04) mg/dL Estimated GFR (>60) mL/min BUN/Creatinine Ratio (6-22) Glucose (70-100) mg/dL Lactate 0.6 L (0.7-2.1) mmol/L Calcium (8.4-10.2) mg/dL Total Bilirubin (0.2-1.3) mg/dL AST (14-36) IU/L ALT (<35) IU/L Alkaline Phosphatase (38-126) U/L Total Protein (6.3-8.2) g/dL Albumin (3.5-5.0) g/dL Globulin (1.7-4.1) g/dL Albumin/Globulin Ratio (1.0-2.8) Procalcitonin (<0.5) ng/mL COVID-19 PCR Negative (Negative) Imaging Data US breast: Radiologist's Impression: [place] [id number] Ultrasound Report Signed Patient: Janny Eid EMR#: [id number] : 1980Acct:[id number] Age/Sex: 39 / FDate of Service: 02/09/20 Loc: [place] Accession Number: [id number] Procedure: US breast LT limited Ordering Provider: Samira Phillips C.N.M. LIMITED ULTRASOUND OF LEFT BREAST: 02/09/2020 CLINICAL: Left breast pain, redness. Possible abscess. (History right breast abscess). Comparison is made to exam dated: Contralateral right breast 01/02/2020 [facility]. Color flow and real-time ultrasound of the left breast 12-1 o'clock region were performed. Hwang scale images of the real-time examination were reviewed. There is a benign 4.9 cm x 3.9 cm x 3.1 cm irregular fluid collection with a thickened wall in the left breast at 12:30 o'clock posterior depth 5 cm from the nipple. This irregular fluid collection is hypoechoic with an echogenic boundary and internal echoes. This correlates to the reported pain. Color flow imaging demonstrates that there is no vascularity present. There also is a benign 1.9 cm x 1.4 cm x 1.4 cm irregular fluid collection in the left breast at 12:30 o'clock posterior depth 5 cm from the nipple. This irregular fluid collection is hypoechoic with an echogenic boundary and internal echoes. This correlates to the reported pain and is near the skin opening which is draining purulent fluid. Color flow imaging demonstrates that there is no vascularity present. This collection appears to communicate with the above described collection. Note: Compared to the recently drained collection in the contralateral right breast, the collection has more internal debris. The patient is currently lactating. IMPRESSION: BENIGN Left breast loculated bilobed fluid collection measuring 4.9 cm and 1.9 cm is consistent with an abscess. This is near the site of skin opening with purulent discharge. -Recommend incision and drainage and continued clinical management. There is no sonographic evidence of malignancy. Return to annual mammogram screening schedule is recommended usually to commence at age 40. This exam was interpreted at Station ID: [id number]. Electronically Signed By: Shreyas Del Valle M.D. slc/:02/09/2020 11:33:28 letter sent: Clinical Evaluation Ultrasound BI-RADS: 2 Benign MDM Narrative Medical decision making narrative: This is a 39-year-old female presents emergency department with a history of mastitis and previous right breast abscess. She presents for abscess formation to left breast which was confirmed prior to arrival on her ultrasound ordered by CNM. No concern for sepsis or severe systemic infection. Patient is nontoxic appearing, afebrile, non tachycardic. Labs than normal limits confirm a nontoxic picture. Surgery was consulted due to location of multiple abscesses. Patient was taken to surgery by Dr. Shaw. <Anthony Caceres MD - Last Filed: 02/09/20 19:41> Lab Data Labs: Lab Results 02/09/20 02/09/20 02/09/20 Range/Units 13:00 13:00 13:00 WBC 8.5 (4.5-11.0) X10^3/uL RBC 4.30 (4.0-5.2) X10^6/uL Hgb 12.1 (12.0-16.0) g/dL Hct 37.2 (36-46) % MCV 86.5 (80-100) fL MCH 28.1 (26-34) PG MCHC 32.5 (30-36) % RDW 16.0 H (11.6-14.8) % Plt Count 186 (150-400) X10^3/uL Neut % (Auto) 62.9 (50-75) % Lymph % (Auto) 29.3 (25-40) % [place] % (Auto) 4.9 (3-14) % Eos % (Auto) 2.0 (2-4) % Baso % (Auto) 0.9 (0-2) % Neut # (Auto) 5400 (3697-8797) /uL Lymph # (Auto) 2500 (4317-5912) /uL [place] # (Auto) 400 (0-900) /uL Eos # (Auto) 200 (0-450) /uL Baso # (Auto) 100 (0-100) /uL Sodium 139 (137-145) mmol/L Potassium 3.8 (3.4-5.1) mmol/L Chloride 104 (98-107) mmol/L Carbon Dioxide 25 (22-32) mmol/L BUN 11 (7-17) mg/dL Creatinine 0.68 (0.52-1.04) mg/dL Estimated GFR > 60.0 (>60) mL/min BUN/Creatinine Ratio 16.2 (6-22) Glucose 92 (70-100) mg/dL Lactate (0.7-2.1) mmol/L Calcium 9.5 (8.4-10.2) mg/dL Total Bilirubin 0.4 (0.2-1.3) mg/dL AST 32 (14-36) IU/L ALT 22 (<35) IU/L Alkaline Phosphatase 123 (38-126) U/L Total Protein 8.2 (6.3-8.2) g/dL Albumin 4.5 (3.5-5.0) g/dL Globulin 3.7 (1.7-4.1) g/dL Albumin/Globulin Ratio 1.2 (1.0-2.8) Procalcitonin < 0.05 (<0.5) ng/mL COVID-19 PCR (Negative) 02/09/20 02/09/20 Range/Units 13:00 13:52 WBC (4.5-11.0) X10^3/uL RBC (4.0-5.2) X10^6/uL Hgb (12.0-16.0) g/dL Hct (36-46) % MCV (80-100) fL MCH (26-34) PG MCHC (30-36) % RDW (11.6-14.8) % Plt Count (150-400) X10^3/uL Neut % (Auto) (50-75) % Lymph % (Auto) (25-40) % [place] % (Auto) (3-14) % Eos % (Auto) (2-4) % Baso % (Auto) (0-2) % Neut # (Auto) (1455-7878) /uL Lymph # (Auto) (7702-3494) /uL [place] # (Auto) (0-900) /uL Eos # (Auto) (0-450) /uL Baso # (Auto) (0-100) /uL Sodium (137-145) mmol/L Potassium (3.4-5.1) mmol/L Chloride (98-107) mmol/L Carbon Dioxide (22-32) mmol/L BUN (7-17) mg/dL Creatinine (0.52-1.04) mg/dL Estimated GFR (>60) mL/min BUN/Creatinine Ratio (6-22) Glucose (70-100) mg/dL Lactate 0.6 L (0.7-2.1) mmol/L Calcium (8.4-10.2) mg/dL Total Bilirubin (0.2-1.3) mg/dL AST (14-36) IU/L ALT (<35) IU/L Alkaline Phosphatase (38-126) U/L Total Protein (6.3-8.2) g/dL Albumin (3.5-5.0) g/dL Globulin (1.7-4.1) g/dL Albumin/Globulin Ratio (1.0-2.8) Procalcitonin (<0.5) ng/mL COVID-19 PCR Negative (Negative) Discharge Plan Departure Patient Disposition: Admitted as Observation Clinical Impression: Abscess of breast Discharge Date/Time: 02/09/20 14:17 Instructions: DI for Prescription Opioid Use, DI for Skin Abscess, DI for Incision and Drainage, [facility]: Wound Care Referrals: Balwinder Plummer [Primary Care Provider] - Miguel A Shaw MD [Physician] - 02/18/20 Admit Date/Time: 02/09/20 14:10 Admit Provider: Miguel A Shaw
--- NOTE | 2020-02-09 13:10 | PC.NURSE ---
Swelling, tenderness, draining and small open area on left breast. Patient treated for 5 days of IV abx after surgery on right breast. Leaking noted from left breast. Tender to palpation
[2020-02-09 13:26] LABS: Add Manual Diff / Slide Review NO; Basophils Absolute Auto 100 /uL (0-100); Basophils Percent Auto 0.9 % (0-2); Eosinophils Absolute Auto 200 /uL (0-450); Hematocrit 37.2 % (36-46); Hemoglobin 12.1 g/dL (12.0-16.0); Lymphocytes Absolute Auto 2500 /uL (1100-4500); Lymphocytes Percent Auto 29.3 % (25-40); Mean Corpuscular HGB Conc 32.5 % (30-36); Mean Corpuscular Hemoglobin 28.1 PG (26-34); Mean Corpuscular Volume 86.5 fL (80-100); Monocytes Absolute Auto 400 /uL (0-900); Monocytes Percent Auto 4.9 % (3-14); Neutrophils Absolute Auto 5400 /uL (1500-7000); Neutrophils Percent Auto 62.9 % (50-75); Platelet Count 186 X10^3/uL (150-400); White Blood Cell Count 8.5 X10^3/uL (4.5-11.0)
[2020-02-09 13:40] LABS: Alanine Aminotransferase 22 IU/L (<35); Albumin 4.5 g/dL (3.5-5.0); Albumin Globulin Ratio 1.2 (1.0-2.8); Alkaline Phosphatase 123 U/L (38-126); Aspartate Aminotransferase 32 IU/L (14-36); BUN Creatinine Ratio 16.2 (6-22); Bilirubin Total 0.4 mg/dL (0.2-1.3); Blood Urea Nitrogen 11 mg/dL (7-17); Calcium 9.5 mg/dL (8.4-10.2); Carbon Dioxide 25 mmol/L (22-32); Chloride 104 mmol/L (98-107); Estimated Glomerular Filt Rate > 60.0 mL/min (>60); Globulin 3.7 g/dL (1.7-4.1); Glucose 92 mg/dL (70-100); HEMOLYSIS < 15 (0-50); Potassium 3.8 mmol/L (3.4-5.1); Sodium 139 mmol/L (137-145); Total Protein 8.2 g/dL (6.3-8.2)
[2020-02-09] MEDS: SODIUM CHLORIDE 0.9% 1,000 ML 1000 ML IV (13:48)
[2020-02-09 13:50] LABS: Lactate (Lactic Acid) 0.6 mmol/L (0.7-2.1)
[2020-02-09 14:06] LABS: Procalcitonin < 0.05 ng/mL (<0.5)
--- NOTE | 2020-02-09 14:11 | P.HP_ITS ---
History of Present Illness History of Present Illness Date Patient Seen: 02/09/20 Time Patient Seen: 14:12 Chief complaint: abcess on breast/ per surgeon from us Narrative: This is a 39-year-old woman 2 months who is presenting with left breast abscess. She had a right breast abscess which required incision and drainage as well as treatment for cellulitis 1 month ago. The right breast abscess has resolved but she developed tenderness in the left ad ast 10 days ago was treated with dicloxacillin and has failed to improve. Today she underwent a ultrasound the of the left breast which demonstrates a 5 cm bi- lobed fluid collection consistent with abscess. No fever nausea vomiting. White blood cell count 9 on admission. She has had a small amount of spontaneous drainage from the upper aspect of the breast. She has not actively breast feeding as she had a right milk duct fistula but has been continuing to pump several times per day in order to decrease the drainage from the right breast. Patient History Medical History Benign focal childhood epilepsy (Acute) Gestational diabetes (Inactive) Skin cancer (melanoma) (Acute) Family & Social History Family History Father Thyroid disorder Social History: household members spouse lives independently Yes Safety & Behavioral: Feels Safe in Current Yes Environment Been Physically Hurt or No Threatened By a Person Tobacco & Substance use: Smoking Status Never smoker alcohol intake never Substance Use Type does not use Meds Home Medications and Allergies Home Medications Medication Instructions Recorded Confirmed Type sertraline 100 mg PO DAILY 12/05/19 01/21/20 History [id number]-Psvryz 1 applic TOPICAL PRN PRN 365 Days 12/07/19 01/21/20 Rx #60 gram acetaminophen 650 mg PO Q6HR PRN 14 Days #60 tab 12/07/19 01/21/20 Rx ibuprofen 600 mg PO Q6HR PRN 14 Days #60 tab 12/07/19 01/21/20 Rx ibuprofen 600 mg PO Q8H PRN #30 tab 01/06/20 01/21/20 Rx Allergies Allergy/AdvReac Type Severity Reaction Status Date / Time carbamazepine [From Tegretol] Allergy Verified 02/09/20 11:34 petrolatum,white AdvReac Rash Verified 02/09/20 11:34 [From Vaseline] Review of Systems Review of Systems Narrative: A 10 point review of systems is negative except as noted in the HPI Exam Vital Signs (past 8 hours): - 02/09/20 11:30 02/09/20 13:09 Temperature 97.9 F Pulse Rate 73 66 Respiratory Rate 14 16 Blood Pressure 133/90 Blood Pressure [Left Arm] 120/58 L Pulse Oximetry 97 96 Oxygen Delivery Method Room Air Narrative Exam Narrative: General-no acute distress, well nourished HEENT-moist mucous membranes, no scleral icterus Neck-supple, no lymphadenopathy Chest- non labored respirations, clear to auscultation bilaterally Breast-the left breast with fluctuant tenderness in the upper outer quadrant. No cellulitis Cardiac-regular rate no peripheral edema Abdomen-soft, nontender, non distended Extremities-warm, well perfused Neurological-alert and oriented, no focal deficits Objective Labs Result Diagrams: 02/09/20 13:00 02/09/20 13:00 Labs: Laboratory Results - last 24 hr 02/09/20 02/09/20 02/09/20 13:00 13:00 13:00 WBC 8.5 RBC 4.30 Hgb 12.1 Hct 37.2 MCV 86.5 MCH 28.1 MCHC 32.5 RDW 16.0 H Plt Count 186 Neut % (Auto) 62.9 Lymph % (Auto) 29.3 [place] % (Auto) 4.9 Eos % (Auto) 2.0 Baso % (Auto) 0.9 Neut # (Auto) 5400 Lymph # (Auto) 2500 [place] # (Auto) 400 Eos # (Auto) 200 Baso # (Auto) 100 Sodium 139 Potassium 3.8 Chloride 104 Carbon Dioxide 25 BUN 11 Creatinine 0.68 Estimated GFR > 60.0 BUN/Creatinine Ratio 16.2 Glucose 92 Lactate Calcium 9.5 Total Bilirubin 0.4 AST 32 ALT 22 Alkaline Phosphatase 123 Total Protein 8.2 Albumin 4.5 Globulin 3.7 Albumin/Globulin Ratio 1.2 Procalcitonin < 0.05 02/09/20 13:00 WBC RBC Hgb Hct MCV MCH MCHC RDW Plt Count Neut % (Auto) Lymph % (Auto) [place] % (Auto) Eos % (Auto) Baso % (Auto) Neut # (Auto) Lymph # (Auto) [place] # (Auto) Eos # (Auto) Baso # (Auto) Sodium Potassium Chloride Carbon Dioxide BUN Creatinine Estimated GFR BUN/Creatinine Ratio Glucose Lactate 0.6 L Calcium Total Bilirubin AST ALT Alkaline Phosphatase Total Protein Albumin Globulin Albumin/Globulin Ratio Procalcitonin Assessment & Plan Assessment and plan (1) Left breast abscess: Current visit: Yes Status: Acute Assessment & Plan narrative: 39-year-old female 2 months with a left breast abscess. I reviewed her ultrasound which demonstrates 5 cm fluid collection in the left breast as well as her laboratory studies demonstrating a white blood cell count of 9. I recommended that we take her to the operating room for an incision and drainage of the abscess. As she has no cellulitis or systemic toxicity and therefore she will not require inpatient admission. I discussed the technical nature of the procedure with her including the risks of bleeding infection milk duct fistula formation, need for further procedure. I told her that I plan on using gauze packing to the cavity postprocedure. I told her that I would send her with pain medication and antibiotic therapy. Que stions have been answered she is in agreement with this plan.
[2020-02-09] MEDS: LACTATED RINGERS 1,000 ML 42 ML IV (14:27)
[2020-02-09 14:48] LABS: COVID19 -Nasal RAPID Negative (Negative)
[2020-02-09] MEDS: CEFAZOLIN 2 GM/100 ML FROZ.PIGGY IV (15:54)
--- NOTE | 2020-02-09 16:17 | SUR.OPER ---
Supine on padded OR bed, head on pillow, arms secured on padded arm boards at <90 degrees abduction, legs uncrossed, safety belt at thigh, tape over blanket over lower legs.
--- NOTE | 2020-02-09 16:30 | PM.OP.1 ---
Operative Date/Time/Diagnoses Date of procedure: 02/09/20 Time of procedure: 16:30 Pre-op diagnosis: Left breast abscess Post-op diagnosis: same Procedure & Clinicians Procedure: Incision and drainage breast abscess Same procedure as scheduled: Yes Indications: 39-year-old female 2 months with a symptomatic left breast abscess 5 cm on ultrasound. Surgeon: Miguel A Shaw Click Yes if Unassisted: Yes Anesthesia Type: MAC +/- Operative Notes Findings: Thick purulent discharge Specimen(s): none sent Estimated Blood Loss (mL): 20 Procedure in detail: The patient was brought to the OR and placed supine on the bed. Bilateral lower extremity compression devices were applied. She received 2 g of Ancef prior to skin incision. Time-out was performed ensure the correct patient procedure necessary equipment within the operating room. She was prepped and draped in sterile fashion. 0.25% bupivacaine was injected in the skin at the upper outer aspect breast. Incision was made and thick purulence discharge was encountered. A hemostat was used to break the loculations. The wound was copiously irrigated. The breast was compressed and the abscess was pushed to the to the incision and drained in its entirety. Wound was then packed with iodoform. Patient emerged from anesthesia and was transferred to recovery room. Complications: none Post-operative Condition: stable Disposition: same day surgery
[2020-02-09] MEDS: BUPIVACAINE 0.25% (PF) VIAL 30 ML INJ (16:38)
[2020-02-09] MEDS: OXYCODONE IR 5 MG TABLET PO (17:06)
--- NOTE | 2020-02-09 17:36 | SUR.PHASEII ---
1735 - reported off to JIMBO Miguel
--- NOTE | 2020-02-09 18:00 | SUR.PHASEII ---
This nurse provided detailed instructions regarding wound care and how to pack wound at home. V/U. Dressing supplies provided. V/u. Home with in stable condition. All belongings returned to patient.
== END 2020-02-09 18:02 | disposition home or self-care (01) ==
LOC: ED 13:29 → AC 14:11
PROVIDERS: Admitting Provider Surgery; Emergency Provider Nurse Practitioner; PCP Physician Assistant Medical; Visit Provider Surgery
PROC: (CPT 10060; principal; 2020-02-09 14:30)
DX: N61.1 Abscess of the breast and nipple (principal); Z11.59 Encounter for screening for other viral diseases; N64.4 Mastodynia; N64.89 Other specified disorders of breast
CPT/HCPCS: 10060; 36415; 76642; 80053; 83605; 84145; 85025; 87040; 87635; 99284; G0378; J0690; J2250; J2405; J2704; J3010

== ENCOUNTER → 2021-03-03 08:10 | Outpatient (CLI) | payer OTHER, SELFPAY ==
[2020-01-02 21:47] VITALS: BMI 28.2
--- NOTE | 2021-03-03 08:12 | DI.MG.S_ITS ---
BILATERAL DIGITAL SCREENING MAMMOGRAM 3D/2D WITH CAD: 03/03/2021 CLINICAL: Baseline exam. Routine screening. Family history of breast cancer. Comparison is made to exams dated: 02/09/2020 [facility] and 01/05/2020 [facility]. The tissue of both breasts is heterogeneously dense. This may lower the sensitivity of mammography. Current study was also evaluated with a Computer Aided Detection (CAD) system. There are benign post operative findings in the right breast. No significant masses, calcifications, or other findings are seen in either breast. There has been no significant interval change. IMPRESSION: BENIGN There is no mammographic evidence of malignancy. A 1 year screening mammogram is recommended. This exam was interpreted at Station ID: [id number]. NOTE: For mammograms, a report in lay terms will be sent to the patient. Approximately 15% of breast malignancies will not be visualized mammographically. In the management of a palpable breast mass, a negative mammogram must not discourage biopsy of a clinically suspicious lesion. Electronically Signed By: Lizbet leiva/tom:03/03/2021 11:44:44 letter sent: Normal Exam ACR BI-RADS Category 2: Benign Finding(s) 3342F
== END ==
PROVIDERS: PCP Registered Nurse Diabetes Educator; Referring Provider Registered Nurse Diabetes Educator; Visit Provider Registered Nurse Diabetes Educator
DX: Z12.31 Encounter for screening mammogram for malignant neoplasm of breast (principal)
CPT/HCPCS: 77063; 77067

== ENCOUNTER → 2021-11-10 13:54 | Outpatient (CLI) | payer OTHER, SELFPAY ==
[2020-01-02 21:47] VITALS: BMI 28.2
[2021-11-10 14:54] LABS: D Dimer < 200 ng/mL (<230)
== END ==
PROVIDERS: PCP Registered Nurse Diabetes Educator; Referring Provider Registered Nurse Diabetes Educator; Visit Provider Registered Nurse Diabetes Educator
DX: M79.605 Pain in left leg (principal)
CPT/HCPCS: 36415; 85379

== ENCOUNTER 2022-01-10 16:09 | Emergency (ER) | payer OTHER, SELFPAY ==
[2022-01-09 13:13] VITALS: BMI 28.2
[2022-01-10 16:13] VITALS: BP 120/60; PULSE 65; RESP 20; TEMP 36.8; O2SAT 100
--- NOTE | 2022-01-10 16:17 | DI.US.S_ITS ---
PROCEDURE: US PERIPH VENOUS LOW EXTREM LT INDICATIONS: r/o dvt TECHNIQUE: Real-time imaging, as well as color and pulse Doppler interrogation, were performed of the lower extremity deep veins from the inguinal ligament to the popliteal fossa. COMPARISON: None. FINDINGS: The common femoral, femoral and popliteal veins are normally compressible, and free of intraluminal thrombus. Color and pulse Doppler demonstrate normal phasic intraluminal flow. There is normal augmentation response to distal compression maneuver. There is an incidentally noted thrombosed varicosity within the superficial venous system. IMPRESSION: 1. No deep vein thrombosis of the left lower extremity. 2. Thrombosed left lower extremity superficial varicosity which is likely symptomatic. Dictated by: Renetta Dior M.D. on 01/10/2022 at 17:06 Approved by: Renetta Dior M.D. on 01/10/2022 at 17:07
[2022-01-10] MEDS: IBUPROFEN 400 MG TABLET 600 MG PO (17:55)
[2022-01-10] MEDS: DOXYCYCLINE HYCLATE 100 MG TABLET PO (17:55)
[2022-01-10] MEDS: LIDO 1%/SOD BICARB 8.4% (10ML) 10 ML SYRINGE INJ (17:55)
--- NOTE | 2022-01-10 18:12 | ED_ITS ---
HPI - Extremity Injury (Lower) <ALBERTO Rojas - Last Filed: 01/10/22 18:27> General Chief Complaint: Extremity Injury, Lower Stated Complaint: SENT BY DR MAX/BLOOD CLOT LEG? Time Seen by Provider: 01/10/22 17:47 Source: patient Mode of arrival: Ambulatory History of Present Illness HPI Narrative: This is a 41-year-old female who presents to the emergency department and sent over by ALBERTO Snow with chief complaint left lower extremity palpable mass and concern for DVT/superficial vein thrombosis. Patient states that she has had palpable tenderness to this medial left knee region for the last 3 days. She denies any dependent lower extremity edema, denies any sensation changes, denies any surrounding erythema or open wound. She denies any fever, fatigue, feeling poorly. She states that she had a referral to vascular placed by Meet DOMINGUEZ, she is here for ultrasound to rule out DVT. She endorses a history of mastitis but denies any history of MRSA. Related Data Home Medications Medication Instructions Recorded Confirmed prenat.vits,colby,dbd-nvoe-haszt PO 02/14/21 01/10/22 Previous Rx's Medication Instructions Recorded bupropion HCl 150 mg 24 hr tablet, 150 mg PO QAM #90 tab 12/07/21 extended release (Wellbutrin XL) sertraline 100 mg tablet 100 mg PO DAILY #90 tab 12/07/21 diclofenac epolamine 1.3 % 1 patch TOPICAL BID PRN #5 ea 01/10/22 transdermal 12 hour patch doxycycline hyclate 100 mg tablet 100 mg PO BID 5 Days #10 tab 01/10/22 Allergies Allergy/AdvReac Type Severity Reaction Status Date / Time carbamazepine [From Tegretol] Allergy Verified 01/10/22 16:04 petrolatum,white AdvReac Rash Verified 01/10/22 16:04 [From Vaseline] Review of Systems <ALBERTO Rojas - Last Filed: 01/10/22 18:27> Review of Systems Narrative: General: denies fever, chills, malaise, sweats, fatigue Head/Neck: denies headache, neck pain, dizziness Eyes: denies visual changes, eye pain Cardio: denies chest pain, palpitations, edema Respiratory: denies dyspnea, cough, orthopnea GI: denies abdominal pain, nausea, vomiting, or diarrhea : denies dysuria, hematuria, urinary retention, frequency or incontinence MSK: denies joint pain, muscle weakness Skin: denies rash, itching, medial left knee mass approximately 2 cm which is tender Neuro: denies numbness, tingling Patient History <ALBERTO Rojas - Last Filed: 01/10/22 18:27> Medical History Anxiety Benign focal childhood epilepsy Depression Gestational diabetes Skin cancer (melanoma) Family History Father Thyroid disorder Social History marital status: household members: spouse lives independently: Yes housing: house education level: college occupational status: employed Smoking Status: Never smoker alcohol intake: never Smoking Status: Never smoker Substance Use Type: does not use Exam <ALBERTO Rojas - Last Filed: 01/10/22 18:27> Narrative Exam Narrative: Independently reviewed vitals signs and nursing notes. General: cooperative, comfortable, in no acute distress, well developed and well groomed Head: atraumatic, symmetrical facial expressions Neck: supple, atraumatic, without lymphadenopathy. Eyes: pupils equal round and reactive, EOMI, conjunctiva normal Nose: nares patent, no rhinorrhea Mouth/Throat: uvula midline, moist mucus membranes Cardiovascular: regular rate and rhythm, no peripheral edema, warm extremities Respiratory: normal effort, able to speak in complete sentences, no audible wheezing, stridor, or rales. No retractions or tachypnea. GI: abdomen soft, nontender to palpation, nondistended, no masses, no exquisite tenderness with exam, without guarding or rebound. MSK: moves all extremities, ambulatory w/steady gait, neurovascularly intact, no weakness Skin: brisk capillary refill, no rash, no erythema, approximate 2 cm palpable mass on the superficial medial aspect of her left knee, no erythema, tenderness to palpation, no ecchymosis, no dependent edema, no rash. It appeared mildly fluctuant to palpation, needle aspiration for culture only resulted with blood. Neuro: normal speech and cognition, A&O x3, normal tone Psych: mental status is grossly normal, congruent mood, normal affect, pleasant and cooperative Initial Vital Signs Initial Vital Signs: Vital Signs Temperature 98.2 F 01/10/22 16:13 Pulse Rate 65 01/10/22 16:13 Respiratory Rate 20 01/10/22 16:13 Blood Pressure 120/60 01/10/22 16:13 Pulse Oximetry 100 01/10/22 16:13 <Danie Bowling DO - Last Filed: 01/11/22 10:36> Initial Vital Signs Initial Vital Signs: Vital Signs Temperature 98.2 F 01/10/22 16:13 Pulse Rate 65 01/10/22 16:13 Respiratory Rate 20 01/10/22 16:13 Blood Pressure 120/60 01/10/22 16:13 Pulse Oximetry 100 01/10/22 16:13 Procedures <ALBERTO Rojas - Last Filed: 01/10/22 18:27> Abscess I/D I&D #1: Site: lower extremity Side (if applicable): left Sedation/analgesia: none Local Anesthetic: lidocaine 1% and with bicarb Amount of anesthesia used (mL): 1 Technique: needle aspiration Amount of fluid expressed (mL): 1 Packing used?: none Course <ALBERTO Rojas - Last Filed: 01/10/22 18:27> Orders Ordered: Discontinued Medications Doxycycline Hyclate (Doxycycline Hyclate 100 Mg Tablet) 100 mg PO NOW ONE Stop: 01/10/22 17:51 Last Admin: 01/10/22 17:55 Dose: 100 mg Documented by: ROBERT Ibuprofen (Ibuprofen 400 Mg Tablet) 600 mg PO NOW ONE Stop: 01/10/22 17:51 Last Admin: 01/10/22 17:55 Dose: 600 mg Documented by: ROBERT Lidocaine/Sodium Bicarbonate (Lido 1%/Sod Bicarb 8.4% (10ml) 10 Ml Syringe) 10 ml INJ NOW ONE Stop: 01/10/22 17:51 Last Admin: 01/10/22 17:55 Dose: 10 ml Documented by: ROBERT Ondansetron HCl (Ondansetron 4 Mg Odt) 4 mg SL NOW ONE Stop: 01/10/22 18:04 Last Admin: 01/10/22 18:16 Dose: 4 mg Documented by: ROBERT Vital Signs Vital signs: Vital Signs - 8 hr 01/10/22 16:13 Temperature 98.2 F Pulse Rate 65 Respiratory Rate 20 Blood Pressure 120/60 Pulse Oximetry 100 <Danie Bowling DO - Last Filed: 01/11/22 10:36> Orders Ordered: Discontinued Medications Doxycycline Hyclate (Doxycycline Hyclate 100 Mg Tablet) 100 mg PO NOW ONE Stop: 01/10/22 17:51 Last Admin: 01/10/22 17:55 Dose: 100 mg Documented by: ROBERT Ibuprofen (Ibuprofen 400 Mg Tablet) 600 mg PO NOW ONE Stop: 01/10/22 17:51 Last Admin: 01/10/22 17:55 Dose: 600 mg Documented by: ROBERT Lidocaine/Sodium Bicarbonate (Lido 1%/Sod Bicarb 8.4% (10ml) 10 Ml Syringe) 10 ml INJ NOW ONE Stop: 01/10/22 17:51 Last Admin: 01/10/22 17:55 Dose: 10 ml Documented by: ROBERT Ondansetron HCl (Ondansetron 4 Mg Odt) 4 mg SL NOW ONE Stop: 01/10/22 18:04 Last Admin: 01/10/22 18:16 Dose: 4 mg Documented by: ROBERT Vital Signs Vital signs: Vital Signs - 8 hr 01/10/22 16:13 Temperature 98.2 F Pulse Rate 65 Respiratory Rate 20 Blood Pressure 120/60 Pulse Oximetry 100 MDM - Extremity Injury (Lower) <Stacey Orozco [facility] - Last Filed: 01/10/22 18:27> Imaging Data US - DVT: Radiologist's Impression: PROCEDURE:? US PERIPH VENOUS LOW EXTREM LT ? INDICATIONS:? r/o dvt ? TECHNIQUE:? Real-time imaging, as well as color and pulse Doppler interrogation, were performed of the lower extremity deep veins from the inguinal ligament to the popliteal gallito a.? ? COMPARISON:? None. ? FINDINGS:? The common femoral, femoral and popliteal veins are normally compressible, and free of intraluminal thrombus.? Color and pulse Doppler demonstrate normal phasic intraluminal flow.? There is normal augmentation response to distal compression maneuver. ?There is an incidentally noted thrombosed varicosity within the superficial venous system. ? IMPRESSION:? ? 1. No deep vein thrombosis of the left lower extremity. ? 2. Thrombosed left lower extremity superficial varicosity which is likely symptomatic. ? ? Dictated by: Renetta Dior M.D. on 01/10/2022 at 17:06 ? ? Approved by: Renetta Dior M.D. on 01/10/2022 at 17:07 ? MDM Narrative Medical decision making narrative: 41-year-old female presents to the emergency department for concern about DVT with left medial lower extremity superficial mass which has been there for approximately 3 days. DVT ultrasound of her left lower extremity is negative for deep vein thrombosis, they do note a superficial left lower extremity varicosity which is likely this same location which is tender. After exam, there is no surrounding erythema however there was fluctuance. Differential includes abscess versus cellulitis with her history of mastitis. [place] decision making to do a needle aspiration, sent for culture. Initially she was ordered doxycycline, however after needle aspiration for only blood with correlating ultrasound results decision was made to hold doxycycline until wound culture grows out and follow-up with vascular surgery/Dermatology. Referrals were made by ALBERTO Snow her PCP earlier today. Patient is given a prescription of doxycycline in case anything grows out from her culture however I have a low suspicion that this is infectious. Recommend to do warm compresses, ibuprofen or Tylenol for pain, topical diclofenac if helpful and follow up accordingly. Patient is appropriate and amenable to discharge home. Vital signs are stable on repeat examination is unremarkable. Patient has been informed of results. Patient has been given strict return to ER precautions for any new or worsening symptoms. Patient understands to follow up closely with outpatient providers as instructed. Patient understands plan and agrees to discharge home. All questions and concerns answered at this time. Discharge Plan Departure Patient Disposition: Home Clinical Impression: Superficial thrombosis of left lower extremity Activity Restrictions/Additional Instructions: *You have been diagnosed with a superficial thrombosed vein in your left lower extremity. Please follow-up with the referrals Meet Max has put in for you. Do not have any deep vein thrombosis. Please do not take any antibiotics until you receive a call saying you have bacteria growing out of this wound or if you develop fever, increased swelling, pain, and redness to this area. Please give a cover with a Band-Aid until it heals. Thank you for trusting us with your care, sorry that I poked you, however this may help rule out any infection. I hope it feels better soon. I would recommend ibuprofen and Tylenol as needed, warm compresses, you can use topical Voltaren gel as well. I will send your chart to Meet Max so she is aware of this. *What to do: *Please continue to take your regular medications as directed. [x ] New medication prescriptions sent to your pharmacy: [[facility] ] [ ] New medication written as a paper prescription [ ] No new medications given *Please follow up with your primary care provider in 2-3 days, call for an appointment. Let them know you were seen in the Emergency Department and that we asked that you be seen for follow-up. We will electronically transmit a record of today's note if your PCP is in our system *If you do not have a primary care provider please contact [phone] to establish care with one of the [facility] primary care providers. *Return to Emergency Department if you should have any new, worsening or concerning symptoms, such as [fever greater than 101F, chills, worsening pain, persistent vomiting or other bothersome symptoms] Prescriptions: New doxycycline hyclate 100 mg tablet 100 mg PO BID 5 Days Qty: 10 0RF diclofenac epolamine 1.3 % patch 12 hour 1 patch topical BID PRN (Reason: pain) Qty: 5 0RF No Action bupropion HCl [Wellbutrin XL] 150 mg tablet extended release 24 hr 150 mg PO QAM Qty: 90 1RF sertraline 100 mg tablet 100 mg PO DAILY Qty: 90 1RF prenat.vits,colby,kbj-dbdy-owshm PO 0RF Referrals: Meet Max ARNP [Primary Care Provider] - <Danie Bowling DO - Last Filed: 01/11/22 10:36> Cosign ED Attending Cosdignaature Attestation: I was immediately available in the department for consultation. This documentation has been reviewed and I agree with assessment and plan. Supervised by Danie Bowling DO
[2022-01-10] MEDS: ONDANSETRON 4 MG ODT SL (18:16)
== END 2022-01-10 18:27 | disposition home or self-care (01) ==
PROVIDERS: Emergency Provider Nurse Practitioner Critical Care Medicine; PCP Registered Nurse Diabetes Educator
DX: I82.812 Embolism and thrombosis of superficial veins of left lower extremity (principal)
CPT/HCPCS: 10160; 87070; 87075; 87205; 93971; 99283; 99284

== ENCOUNTER → 2022-04-14 13:47 | Outpatient (CLI) | payer OTHER, SELFPAY ==
[2022-01-09 13:13] VITALS: BMI 28.2
--- NOTE | 2022-04-14 | DI.MG.S_ITS ---
BILATERAL DIGITAL SCREENING MAMMOGRAM 3D/2D WITH CAD: 04/14/2022 CLINICAL: Routine screening. Comparison is made to exams dated: 03/03/2021 mammogram, 02/09/2020 ultrasound, 01/05/2020 ultrasound, and 01/02/2020 ultrasound - [facility]. The tissue of both breasts is heterogeneously dense. This may lower the sensitivity of mammography. Current study was also evaluated with a Computer Aided Detection (CAD) system. There are benign post operative findings in the right breast. No significant masses, calcifications, or other findings are seen in either breast. There has been no significant interval change. IMPRESSION: BENIGN There is no mammographic evidence of malignancy. A 1 year screening mammogram is recommended. This exam was interpreted at Station ID: [id number]. NOTE: For mammograms, a report in lay terms will be sent to the patient. Approximately 15% of breast malignancies will not be visualized mammographically. In the management of a palpable breast mass, a negative mammogram must not discourage biopsy of a clinically suspicious lesion. Electronically Signed By: Sha Dan M.D., jr/tom:04/14/2022 15:02:07 letter sent: Normal Exam ACR BI-RADS Category 2: Benign Finding(s) 3342F
== END ==
PROVIDERS: PCP Registered Nurse Diabetes Educator; Referring Provider Registered Nurse Diabetes Educator; Visit Provider Registered Nurse Diabetes Educator
DX: Z12.31 Encounter for screening mammogram for malignant neoplasm of breast (principal)
CPT/HCPCS: 77063; 77067

== ENCOUNTER → 2023-04-19 11:30 | Outpatient (CLI) | payer OTHER, SELFPAY ==
[2022-01-09 13:13] VITALS: BMI 28.2
--- NOTE | 2023-04-19 11:30 | DI.MG.S_ITS ---
BILATERAL DIGITAL SCREENING MAMMOGRAM 3D/2D WITH CAD: 04/19/2023 CLINICAL: Routine screening. Comparison is made to exams dated: 04/14/2022 mammogram and 03/03/2021 mammogram - [facility]. Both breasts are heterogeneously dense, which may obscure small masses (category c / 51-75% glandular tissue). Current study was also evaluated with a Computer Aided Detection (CAD) system. There are benign post operative findings in the right breast. No significant masses, calcifications, or other findings are seen in either breast. There has been no significant interval change. IMPRESSION: BENIGN There is no mammographic evidence of malignancy. A 1 year screening mammogram is recommended. Based on the Tyrer Cuzick model (a risk assessment model) the patient's lifetime risk is 17.8% and her 10 year risk is 2.7%. According to the ACR, ACS, and NCCN guidelines, an annual breast MRI exam along with mammogram is recommended if the patient's lifetime risk is 20% or greater. This exam was interpreted at Station ID: [id number]. NOTE: For mammograms, a report in lay terms will be sent to the patient. Approximately 15% of breast malignancies will not be visualized mammographically. In the management of a palpable breast mass, a negative mammogram must not discourage biopsy of a clinically suspicious lesion. Electronically Signed By: Jostin carter/tom:04/19/2023 14:07:25 letter sent: Normal Exam ACR BI-RADS Category 2: Benign Finding(s) 3342F
== END ==
PROVIDERS: PCP Registered Nurse Diabetes Educator; Referring Provider Registered Nurse Diabetes Educator; Visit Provider Registered Nurse Diabetes Educator
DX: Z12.31 Encounter for screening mammogram for malignant neoplasm of breast (principal)
CPT/HCPCS: 77063; 77067

== ENCOUNTER → 2023-09-03 13:32 | Outpatient (CLI) | payer OTHER, SELFPAY ==
[2022-01-09 13:13] VITALS: BMI 28.2
[2023-09-06 03:05] LABS: Almond IgE <0.10 kU/L (Class 0); Cashew Nut IgE <0.10 kU/L (Class 0); Codfish Allergy IgE < 0.10 kU/L (Class 0); Egg White IgE <0.10 kU/L (Class 0); Hazelnut IgE <0.10 kU/L (Class 0); Milk IgE <0.10 kU/L (Class 0); Peanut IgE <0.10 kU/L (Class 0); Salmon Allergy IgE < 0.10 kU/L (Class 0); Scallop Allergy IgE < 0.10 kU/L (Class 0); Sesame seed Allergy IgE < 0.10 kU/L (Class 0); Shrimp IgE <0.10 kU/L (Class 0); Soybean IgE <0.10 kU/L (Class 0); Tuna Allergy IgE < 0.10 kU/L (Class 0); Walnut IgE <0.10 kU/L (Class 0); Wheat Allergy IgE < 0.10 kU/L (Class 0)
== END ==
PROVIDERS: PCP Registered Nurse Diabetes Educator; Referring Provider Registered Nurse Diabetes Educator; Visit Provider Registered Nurse Diabetes Educator
DX: Z91.018 Allergy to other foods (principal)
CPT/HCPCS: 36415; 86003

== ENCOUNTER → 2024-01-24 12:10 | Outpatient (CLI) | payer OTHER, SELFPAY ==
[2022-01-09 13:13] VITALS: BMI 28.2
--- NOTE | 2024-01-24 12:11 | DI.US.S_ITS ---
PROCEDURE: US PELVIC COMPLETE INDICATIONS: MENOMETRORRHAGIA TECHNIQUE: Real-time scanning was performed of the pelvic organs, with image documentation. Additional endovaginal scanning was necessary due to incomplete visualization of the adnexal and endometrial structures by transabdominal scanning. COMPARISON: None. FINDINGS: Uterus: Uterus is anteverted and normal in size at 8.2 x 4.2 x 5.4 cm. The myometrium is homogeneous. The endometrium measures 9.7 mm combined thickness. No uterine fibroids. Ovaries: The right ovary measures 3.1 x 3.4 x 3.1 cm, with a calculated ovarian volume of 6.7 cc. The left ovary measures 3.2 x 3.6 x 1.7 cm, with a calculated ovarian volume of 9.8 cc. Complex possibly cystic structure in the left ovary measuring 1.5 centimeters. Less than 12 follicles can be seen in each ovary. No adnexal masses are seen. Other: No pathologic free abdominal or pelvic fluid. IMPRESSION: 1. Endometrium measures 10 millimeters, which is normal in thickness for premenopausal female. 2. Complex possibly cystic structure in the left ovary, recommend follow-up ultrasound in 6-12 weeks to assess for stability or resolution. Right ovary is normal in appearance. We strive to produce accurate, complete, and clear reports of imaging services. To assist us in improving patient care, this report was composed using standard report templates and voice recognition software. Therefore, it may contain abnormal punctuation, insertions and/or omissions. Occasional wrong-word or sound-alike substitutions may occur. Though we review the report and make efforts to correct it, we do recommend that the report be read carefully in proper context to recognize any text inaccuracies. Dictated by: Montana Sandoval M.D. on 01/24/2024 at 13:14 Approved by: Montana Sandoval M.D. on 01/24/2024 at 13:17
== END ==
PROVIDERS: PCP Registered Nurse Diabetes Educator; Referring Provider Registered Nurse Diabetes Educator; Visit Provider Registered Nurse Diabetes Educator
DX: N92.1 Excessive and frequent menstruation with irregular cycle (principal)
CPT/HCPCS: 76830; 76856

== ENCOUNTER → 2024-02-27 12:07 | Outpatient (CLI) | payer OTHER, SELFPAY ==
[2022-01-09 13:13] VITALS: BMI 28.2
--- NOTE | 2024-02-27 12:08 | DI.US.S_ITS ---
PROCEDURE: US PELVIC COMPLETE INDICATIONS: F/u on abnomral US LO TECHNIQUE: Real-time scanning was performed of the pelvic organs, with image documentation. Additional endovaginal scanning was necessary due to incomplete visualization of the adnexal and endometrial structures by transabdominal scanning. COMPARISON: [facility], US, US PELVIC COMPLETE, 01/24/2024, 12:22. FINDINGS: Uterus: Uterus is anteverted and normal in size at 8.8 x 3.5 x 4.0 cm. The myometrium is homogeneous. The endometrium measures 5.1 mm combined thickness. No uterine fibroids. Ovaries: The right ovary measures 3.1 x 1.5 x 1.9 cm, with a calculated ovarian volume of 4.5 cc. The left ovary measures 3.1 x 2.8 x 2.3 cm, with a calculated ovarian volume of 10.3 cc. The ovaries have a normal sonographic appearance. Less than 12 follicles can be seen in each ovary. No adnexal masses are seen. Other: No pathologic free abdominal or pelvic fluid. Trace pelvic free fluid, likely physiologic. IMPRESSION: Resolution of left ovarian complex cyst. Normal appearance of the uterus and ovaries. We strive to produce accurate, complete, and clear reports of imaging services. To assist us in improving patient care, this report was composed using standard report templates and voice recognition software. Therefore, it may contain abnormal punctuation, insertions and/or omissions. Occasional wrong-word or sound-alike substitutions may occur. Though we review the report and make efforts to correct it, we do recommend that the report be read carefully in proper context to recognize any text inaccuracies. Dictated by: Montana Sandoval M.D. on 02/27/2024 at 15:49 Approved by: Montana Sandoval M.D. on 02/27/2024 at 15:51
== END ==
LOC: US 12:08
PROVIDERS: PCP Registered Nurse Diabetes Educator; Referring Provider Registered Nurse Diabetes Educator; Visit Provider Registered Nurse Diabetes Educator
DX: N92.1 Excessive and frequent menstruation with irregular cycle (principal); N83.8 Other noninflammatory disorders of ovary, fallopian tube and broad ligament
CPT/HCPCS: 76856

== ENCOUNTER → 2025-02-09 11:56 | Outpatient (CLI) | payer OTHER, SELFPAY ==
[2022-01-09 13:13] VITALS: BMI 28.2
[2025-02-09 12:40] LABS: Add Manual Diff / Slide Review NO; Basophils Absolute Auto 100 /uL (0-100); Eosinophils Absolute Auto 200 /uL (0-450); Eosinophils Percent Auto 2.9 % (2-4); Lymphocytes Absolute Auto 1900 /uL (1100-4500); Lymphocytes Percent Auto 31.8 % (25-40); Mean Corpuscular HGB Conc 33.4 % (30-36); Mean Corpuscular Hemoglobin 30.1 PG (26-34); Mean Corpuscular Volume 89.9 fL (80-100); Monocytes Absolute Auto 400 /uL (0-900); Monocytes Percent Auto 6.1 % (3-14); Neutrophils Absolute Auto 3500 /uL (1500-7000); Neutrophils Percent Auto 58.2 % (50-75); Platelet Count 190 X10^3/uL (150-400); Red Blood Cell Count 4.33 X10^6/uL (4.0-5.2); Red Cell Distribution Width 14.2 % (11.6-14.8)
[2025-02-09 12:52] LABS: HEMOLYSIS < 15 (0-50); Iron 74 ug/dL (37-170)
[2025-02-09 13:00] LABS: Alanine Aminotransferase 18 IU/L (<35); Albumin 4.9 g/dL (3.5-5.0); Albumin Globulin Ratio 1.8 (1.0-2.8); Alkaline Phosphatase 86 U/L (38-126); Aspartate Aminotransferase 25 IU/L (14-36); BUN Creatinine Ratio 21.3 (6-22); Bilirubin Total 0.7 mg/dL (0.2-1.3); Blood Urea Nitrogen 17 mg/dL (7-17); Calcium 9.7 mg/dL (8.4-10.2); Carbon Dioxide 25 mmol/L (22-32); Chloride 102 mmol/L (98-107); Estimated Glomerular Filt Rate > 60 mL/min (>60); Globulin 2.7 g/dL (1.7-4.1); Glucose 94 mg/dL (70-99); HEMOLYSIS < 15 (0-50); Magnesium 1.8 mg/dL (1.6-2.3); Potassium 4.1 mmol/L (3.4-5.1); Sodium 139 mmol/L (137-145); Total Protein 7.6 g/dL (6.3-8.2)
[2025-02-09 13:04] LABS: Percent Iron Saturation 16 % (15-50); Total Iron Binding Capacity 449 ug/dL (265-497); Transferrin 399 mg/dL (206-381)
[2025-02-09 13:08] LABS: Free T4, Direct Thyroxine 0.78 ng/dL (0.78-2.19)
[2025-02-09 13:22] LABS: Thyroid Stimulating Hormone 4.56 uIU/mL (0.47-4.68)
[2025-02-09 13:34] LABS: Ferritin 10 ng/mL (6-137)
[2025-02-09 13:58] LABS: Folate 12.8 ng/mL (2.76-20.0); Vitamin B12 351 pg/mL (239-931)
[2025-02-09 14:18] LABS: Vitamin D 25 Hydroxy (D3) 39.4 ng/mL (30.0-100.0)
== END ==
LOC: LAB 11:57
PROVIDERS: PCP Registered Nurse Diabetes Educator; Referring Provider Registered Nurse Diabetes Educator; Visit Provider Registered Nurse Diabetes Educator
DX: D64.9 Anemia, unspecified (principal); R53.83 Other fatigue
CPT/HCPCS: 36415; 80053; 82306; 82607; 82728; 82746; 83540; 83550; 83735; 84439; 84443; 85025

== ENCOUNTER → 2025-03-03 13:04 | Outpatient (CLI) | payer OTHER, SELFPAY ==
[2022-01-09 13:13] VITALS: BMI 28.2
--- NOTE | 2025-03-03 13:05 | DI.MG.S_ITS ---
MM screening mammo BI: 03/03/2025. BI-RADS: 1 CLINICAL: 44-year old female for bilateral screening mammogram. Tyrer-Cuzick lifetime risk of 13.5%. No personal or first-degree family history of breast cancer. The patient had prior bilateral breast biopsies. PRIOR EXAMS 04/19/2023, 04/14/2022, 03/03/2021, 02/09/2020, 01/05/2020, 01/02/2020. MAMMOGRAPHY TECHNIQUE: 2D and 3D (tomosynthesis) digital mammographic views obtained, with additional images as needed for full coverage. Current study was also evaluated with a Computer Aided Detection (CAD) system. DENSITY C. The breasts are heterogeneously dense, which may obscure small masses. MAMMOGRAPHY FINDINGS Bilateral: No suspicious mass, asymmetry, microcalcification, or other abnormality seen. No significant change from comparison. IMPRESSION: * No evidence of malignancy. RECOMMENDATIONS Bilateral * Annual screening mammography. OVERALL ASSESSMENT CATEGORY BI-RADS-1: Negative. The [employer] recommends annual screening mammography beginning at age 40 for women with average risk of breast cancer. ELECTRONICALLY SIGNED: Lizbet Patel M.D. on 03/03/2025 at 05:40:19 PM PT Interpreting Station ID: [id number]
== END ==
PROVIDERS: PCP Registered Nurse Diabetes Educator; Referring Provider Registered Nurse Diabetes Educator; Visit Provider Registered Nurse Diabetes Educator
DX: Z12.31 Encounter for screening mammogram for malignant neoplasm of breast (principal); R92.333 Mammographic heterogeneous density, bilateral breasts
CPT/HCPCS: 77063; 77067